=== PATIENT | female | born 1960 | race African-American/Black ===

== ENCOUNTER → 2020-09-20 11:39 | Outpatient (CLI) | payer OTHER, BC, SELFPAY ==
--- NOTE | 2020-09-20 11:45 | DI.RAD.S_ITS ---
PROCEDURE: XR SHOULDER RT MIN 2V INDICATIONS: right shoulder pain TECHNIQUE: 3 views of the shoulder were acquired. COMPARISON: None. FINDINGS: Bones: No fractures or dislocations. No suspicious bony lesions. Visualized ribs appear intact. Soft tissues: No suspicious soft tissue calcifications. IMPRESSION: No definite radiographic abnormality. If pain persists with conservative management, consider cross sectional imaging such as CT or MRI for further assessment. Dictated by: Brian Gomez [facility] Interpreted: Cortez Espinoza MD on 09/20/2020 at 13:40 Transcribed by: SHERRON on 09/20/2020 at 13:40 Approved by: Cortez Espinoza M.D. on 09/20/2020 at 14:10
== END ==
PROVIDERS: PCP Family Medicine; Referring Provider Family Medicine; Visit Provider Family Medicine
DX: M25.511 Pain in right shoulder (principal); E03.9 Hypothyroidism, unspecified; R59.0 Localized enlarged lymph nodes
CPT/HCPCS: 36415; 73030; 80053; 80061; 82043; 82570; 83615; 84439; 84443; 85025

== ENCOUNTER → 2020-09-20 11:55 | Outpatient (CLI) | payer BC, OTHER, SELFPAY ==
[2020-09-20 12:51] LABS: Add Manual Diff / Slide Review NO; Basophils Absolute Auto 0 /uL (0-100); Basophils Percent Auto 0.6 % (0-2); Eosinophils Absolute Auto 200 /uL (0-450); Eosinophils Percent Auto 2.6 % (2-4); Hemoglobin 14.5 g/dL (12.0-16.0); Lymphocytes Absolute Auto 1700 /uL (1100-4500); Lymphocytes Percent Auto 28.3 % (25-40); Mean Corpuscular HGB Conc 32.9 % (30-36); Mean Corpuscular Hemoglobin 34.2 PG (26-34); Mean Corpuscular Volume 103.8 fL (80-100); Monocytes Absolute Auto 500 /uL (0-900); Monocytes Percent Auto 8.5 % (3-14); Neutrophils Absolute Auto 3600 /uL (1500-7000); Platelet Count 262 X10^3/uL (150-400); Red Blood Cell Count 4.24 X10^6/uL (4.0-5.2); White Blood Cell Count 5.9 X10^3/uL (4.5-11.0)
[2020-09-20 13:18] LABS: Alanine Aminotransferase 16 IU/L (<35); Albumin Globulin Ratio 1.2 (1.0-2.8); BUN Creatinine Ratio 8.7 (6-22); Blood Urea Nitrogen 6 mg/dL (7-17); Calcium 9.8 mg/dL (8.4-10.2); Carbon Dioxide 22 mmol/L (22-32); Chloride 103 mmol/L (98-107); Estimated Glomerular Filt Rate > 60.0 mL/min (>60); Globulin 3.9 g/dL (1.7-4.1); Sodium 133 mmol/L (137-145)
[2020-09-20 13:21] LABS: HEMOLYSIS 321 (0-50)
[2020-09-20 13:26] LABS: Cholesterol 183 mg/dL (140-199); HDL Cholesterol 47 mg/dL (40-60); LDL Cholesterol Calculated 105 mg/dL (<100); Triglycerides 155 mg/dL (35-150)
[2020-09-20 13:48] LABS: TSH w/ Reflex to FT4 < 0.02 uIU/mL (0.47-4.68)
[2020-09-20 14:33] LABS: Free T4, Direct Thyroxine 1.91 ng/dL (0.78-2.19)
[2020-09-20 16:33] LABS: Creatinine Urine Random 158.6 mg/dL
[2020-09-20 16:37] LABS: Microalbumi Creatinin Ratio Ur 29.6 ug/mg CR (<30); Microalbumin Urine Random 4.7 mg/dL (0-1.6)
== END ==
PROVIDERS: PCP Family Medicine; Referring Provider Family Medicine; Visit Provider Family Medicine
DX: E03.9 Hypothyroidism, unspecified (principal); R59.0 Localized enlarged lymph nodes
CPT/HCPCS: 36415; 80053; 80061; 82043; 82570; 83615; 84439; 84443; 85025

== ENCOUNTER → 2020-09-27 15:58 | Outpatient (CLI) | payer OTHER, BC, SELFPAY ==
--- NOTE | 2020-09-27 16:00 | DI.US.S_ITS ---
PROCEDURE: US SOFT TISSUE HEAD AND NECK INDICATIONS: CERVICAL CHAIN LYMPH NODE SWELLING TECHNIQUE: Real-time scanning was performed of the neck region of interest, with image documentation. COMPARISON: None. FINDINGS: Multiple right neck enlarged morphologically normal appearing lymph nodes are present with the largest measuring up to 1.7 cm in maximal short axis. IMPRESSION: Lymphadenopathy involving the right neck which although may be reactive, malignant lymphadenopathy cannot be excluded and close clinical correlation and follow-up is recommended. If indicated, contrast-enhanced soft tissue neck CT or FNA could be performed for further assessment. Dictated by: Brian NEUMANN Interpreted: Robert Mcmanus MD on 09/27/2020 at 16:21 Transcribed by: DC on 09/27/2020 at 16:22 Approved by: Robert Mcmanus M.D. on 09/27/2020 at 17:14
== END ==
PROVIDERS: PCP Family Medicine; Referring Provider Family Medicine; Visit Provider Family Medicine
DX: C50.919 Malignant neoplasm of unspecified site of unspecified female breast (principal); R59.0 Localized enlarged lymph nodes
CPT/HCPCS: 76536

== ENCOUNTER → 2020-10-04 18:31 | Outpatient (CLI) | payer OTHER, BC, SELFPAY ==
[2020-10-04 19:55] LABS: COVID19 -Nasal RAPID Negative (Negative)
== END ==
PROVIDERS: PCP Family Medicine; Visit Provider Nurse Practitioner
DX: Z20.822 Contact with and (suspected) exposure to COVID-19 (principal); J02.9 Acute pharyngitis, unspecified
CPT/HCPCS: 87635

== ENCOUNTER 2020-10-23 11:30 | Emergency (ER) | payer OTHER, BC, SELFPAY ==
[2020-10-23] VITALS (13 sets, daily range): BP systolic 110–157; BP diastolic 62–96; PULSE 97–124; RESP 18–29; TEMP 36.7; O2SAT 92–100; BMI 25.8
--- NOTE | 2020-10-23 12:05 | DI.RAD.S_ITS ---
PROCEDURE: XR CHEST 1V INDICATIONS: weakness, tiredness TECHNIQUE: One view of the chest was acquired. COMPARISON: None. FINDINGS: Surgical changes and devices: None. Lungs and pleura: Lungs are clear. No pleural effusions or pneumothorax. Mediastinum: Mediastinal contours appear normal. Heart size is normal. Bones and chest wall: No suspicious bony lesions. Overlying soft tissues appear unremarkable. IMPRESSION: No acute pulmonary process. Dictated by: Ginger Ellison M.D. on 10/23/2020 at 13:20 Approved by: Ginger Ellison M.D. on 10/23/2020 at 13:20
--- NOTE | 2020-10-23 12:27 | DI.CT.S_ITS ---
PROCEDURE: CT HEAD/BRAIN WO CON INDICATIONS: Fall TECHNIQUE: Noncontrast 4.5 mm thick angled axial sections acquired from the foramen magnum to the vertex, with coronal and sagittal reformats. For radiation dose reduction, the following was used: automated exposure control, adjustment of mA and/or kV according to patient size. COMPARISON: [facility], CR, XR CHEST 1V, 10/23/2020, 12:13. FINDINGS: Image quality: There is artifact associated with the metallic hardware. CSF spaces: Basal cisterns are patent. No extra-axial fluid collections. Ventricles are normal in size and shape. Brain: Coils can be seen within the [id number] posteriorly, to the right of the midline, with associated streak artifact. There is abnormal vasogenic edema seen involving both cerebral hemispheres, right worse than left. Potential hyperdense masses can be seen. Mass effect can be seen on the right anteriorly, with midline shift of 8 mm. No definite herniation can be seen at this time. No midline shift. No intracranial masses or hemorrhage. Mann-white matter interface is normal. Skull and face: Calvarium and visualized facial bones are intact, without suspicious lesions. Sinuses: Visualized sinuses and mastoids are clear. IMPRESSION: No acute intracranial hemorrhage is seen. These imaging findings are highly worrisome for metastatic disease, with bilateral apparent hyperdense masses with surrounding vasogenic edema. Mass effect is seen, with midline shift of 8 mm. 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 If it would be helpful for clinical management decision making, please consider a dedicated brain MRI (without and with contrast) for further evaluation (assuming that there is no contraindication). Note: Dr. Pollack was not available to discuss this case at the time of this dictation. Findings and recommendations relayed to Dr. Pollack via staff, [place], at 12:06 p.m. [place] time on October 23, 2020. Dr. Pollack will call back if there are any questions. Dictated by: Varghese Rosenthal M.D. on 10/23/2020 at 12:01 Approved by: Varghese Rosenthal M.D. on 10/23/2020 at 12:08
--- NOTE | 2020-10-23 12:27 | ED_ITS ---
HPI - Neuro Symptoms/Deficit <Gloria Pollack DO - Last Filed: 10/25/20 07:22> General Chief Complaint: Neuro Symptoms/Deficit Stated Complaint: headache, left sided weakness Time Seen by Provider: 10/23/20 12:02 Source: patient and EMS Mode of arrival: EMS Limitations: no limitations History of Present Illness On Anticoagulants: No Related Data Home Medications Medication Instructions Recorded Confirmed cholecalciferol (vitamin D3) 125 125 mcg PO DAILY 09/20/20 10/04/20 mcg (5,000 unit) capsule garlic 1,000 mg capsule 1,000 mg PO QPC 09/20/20 10/04/20 mecobalamin (vitamin B12) 1,000 1,000 mcg PO DAILY 09/20/20 10/04/20 mcg chewable tablet omega-3 fatty acids 1,000 mg 1,000 mg PO DAILY 09/20/20 10/04/20 capsule turmeric root extract 500 mg 1,500 mg PO DAILY cap 09/20/20 10/04/20 capsule Previous Rx's Medication Instructions Recorded anastrozole 1 mg tablet 1 mg PO DAILY #90 tab 09/20/20 levetiracetam 1,000 mg tablet for 1,000 mg PO BID #180 tab 09/20/20 oral suspension lisinopril 40 mg tablet 40 mg PO DAILY #90 tab 09/20/20 levothyroxine 100 mcg tablet 100 mcg PO DAILY #90 tab 09/27/20 dexamethasone 6 mg tablet 6 mg PO QID #20 tab 10/23/20 Allergies Allergy/AdvReac Type Severity Reaction Status Date / Time No Known Drug Allergies Allergy Verified 10/04/20 18:32 <Gene Bell PA-C - Last Filed: 10/24/20 14:21> History of Present Illness HPI Narrative: 60-year-old female with past medical history breast cancer, epilepsy, hypothyroidism, aneurysm of posterior inferior cerebellar artery, hyperlipidemia, hypertension presents to the ED with fatigue, left-sided weakness for 1 week. Patient also endorses chronic right shoulder pain. Patient endorses some painful, right-sided cervical lymphadenopathy. Patient states that she has been taking aspirin for the shoulder pain, Benadryl and melatonin for insomnia. Patient has also been mistakenly doubling her doses of Benadryl. Patient endorses heavy drinking starting the Day weekend, endorses drinking wine. Patient recently moved from [place] in May 2020, says she has been experiencing some depression and anxiety, which prompted her to drink alcohol. Patient was seen earlier at the [facility], diagnosed with dehydration. Patient denies fever, chills, chest pain, shortness of breath, nausea, vomiting, abdominal pain, dysuria. Patient endorses suffering a mechanical fall 1 week ago, denies head strike or other injuries. Denies loss of consciousness. Patient endorses a history of seizures for which she takes Keppra daily. Patient was diagnosed with breast cancer in 2016, underwent double mastectomy in 2018, is on anastrozole daily. Patient's thyroid medication levothyroxine was recently reduced, per the patient. Review of Systems <Gloria Pollack DO - Last Filed: 10/25/20 07:22> Review of Systems ROS Unobtainable: All systems reviewed & are unremarkable except as noted in HPI and below Hematologic/Lymphatic On Anticoagulants: No <Gene Bell PA-C - Last Filed: 10/24/20 14:21> Constitutional Constitutional: Denies chills, Reports difficulty sleeping, Reports fatigue, Denies fever(s), Denies frequent falls, Reports lethargy and Reports weakness Eyes Eyes: Denies change in vision, Denies eye discharge, Denies irritation and Denies loss of vision ENT Ears, Nose, Mouth, and Throat: Denies change in voice, Denies dizziness, Denies neck pain, Denies sore throat and Denies throat swelling Comments: Right cervical painful lymphadenopathy Cardiovascular Cardiovascular: Denies chest pain, Denies irregular heart rhythm, Denies lightheadedness, Denies palpitations, Denies dyspnea, Denies dyspnea on exertion and Denies orthopnea Respiratory Respiratory: Denies cough, Denies dyspnea, Denies dyspnea on exertion and Denies wheezing Gastrointestinal Gastrointestinal: Denies abdominal pain, Denies change in bowel habits, Denies diarrhea, Denies nausea and Denies vomiting Musculoskeletal Musculoskeletal: Reports muscle weakness, Denies neck pain and Denies numbness Integumentary/Breasts Skin/Breast: Denies pruritus, Denies erythema, Denies rash and Denies wounds Neurologic Neurologic: Denies behavioral changes, Denies confusion, Denies dizziness, De nies frequent falls, Reports localized weakness, Denies loss of vision, Denies numbness and Reports weakness Comments: left-sided upper and lower extremity weakness Psychiatric Psychiatric: Denies anxiety, Denies behavioral changes, Denies confusion, Denies depression, Denies homicidal ideation and Denies suicidal ideation Endocrine Endocrine: Reports fatigue, Denies flushing and Denies palpitations Hematologic/Lymphatic Hematologic/Lymphatic: Denies easy bruising Allergic/Immunologic Allergic/Immunologic: Denies urticaria, Denies throat swelling and Denies wheezing Patient History <Gloria Ada Pollack DO - Last Filed: 10/25/20 07:22> Medical History Aneurysm of posterior inferior cerebellar artery Breast cancer, stage 2 Hypertension Hypothyroidism Measles Seizures Family History Father Cancer Social History Smoking Status: Former smoker Smoking Status: Former smoker alcohol intake frequency: holidays/special occasions only Substance Use Type: does not use Exam <Gloria Ada Pollack DO - Last Filed: 10/25/20 07:22> Initial Vital Signs Initial Vital Signs: Vital Signs Pulse Rate 124 H 10/23/20 11:36 Blood Pressure 152/96 H 10/23/20 11:36 Pulse Oximetry 94 10/23/20 11:36 <Gene Bell PA-C - Last Filed: 10/24/20 14:21> Initial Vital Signs Initial Vital Signs: Vital Signs Pulse Rate 124 H 10/23/20 11:36 Blood Pressure 152/96 H 10/23/20 11:36 Pulse Oximetry 94 10/23/20 11:36 Const General: cooperative HENMT Head: normocephalic and atraumatic Ears: external ears normal and TM's normal bilaterally Nose: external nose normal and No nasal discharge Face and sinus: sinuses nontender, face symmetric, no sinus tenderness and No dry mucous membranes Mouth: oral mucosae normal and moist mucous membranes Teeth and gingiva: dentition normal Throat: tonsils normal and uvula midline Eyes General: appearance normal, both eyes and all related structures Eyelids: eyelids normal Conjunctivae: conjunctivae normal Sclera: sclerae normal Pupils: PERRL EOM: EOM intact bilaterally Neck Neck: normal visual inspection, trachea midline, No lymphadenopathy, No midline deformity and No JVD Lymphatic: No lymphedema and lymphadenopathy Other: Painful Cervical lymphadenopathy, right greater than left Chest Chest: normal inspection of the chest Resp Effort & Inspection: normal respiratory effort, able to speak in complete sentences, no respiratory distress and no use of accessory muscles Auscultation: clear to auscultation bilaterally, no rales, no rhonchi and no wheezes Cardio Rate: regular rate Rhythm: regular rhythm Heart Sounds: no click, no gallops, no murmurs and no rubs Pulses: normal peripheral pulses GI Inspection: non-distended Palpation: soft, no hepatosplenomegaly, No guarding, No pulsatile mass and No tender Auscultation: normal bowel sounds Back/Spine/Pelvis Back: No CVA tenderness Cervical Spine: cervical ROM normal and No pain with cervical ROM Thoracic/Lumbar Spine: thoracic and lumbar spine normal to inspection Skin General: no rashes or lesions noted, No jaundice and No petechiae Neuro General: patient alert, patient oriented x3, gait normal and no focal motor deficits Speech: speech normal Other: Neurologically intact. CN 1 through 12 intact, PERRLA, gait normal, strength and sensation intact. Negative pronator drift, negative rapid alternating movements, negative [id number]. Patient alert and oriented A& x4, following commands well. Extrem General: full ROM, no clubbing, cyanosis or edema, no pedal edema and no calf tenderness Psych Appearance: well kempt Mental Status: mental status grossly normal Attitude: cooperative Thought Content: normal and suicidality Judgment: judgment good Course <Gloria Pollack, - Last Filed: 10/25/20 07:22> Orders Ordered: Discontinued Medications Dexamethasone (Dexamethasone 10 Mg/Ml Vial) 10 mg IV NOW ONE Stop: 10/23/20 13:18 Last Admin: 10/23/20 13:31 Dose: 10 mg Documented by: LISSY Sodium Chloride (Normal Saline 0.9%) 1,000 mls @ 1,000 mls/hr IV BOLUS ONE Stop: 10/23/20 13:04 Last Infusion: 10/23/20 16:02 Dose: 0 mls/hr Documented by: Admin: 10/23/20 13:30 Dose: 1,000 mls/hr Documented by: LISSY Sodium Chloride (Normal Saline 0.9%) 1,000 mls @ 500 mls/hr IV BOLUS ONE Stop: 10/23/20 16:37 Last Admin: 10/23/20 15:07 Dose: Not Given Documented by: CTRKIKO Reevaluation(s) Reevaluation #1: Patient was seen evaluated by myself independently. Patient is ambulating without issue around the room when I arrive in the room. Her imaging was reviewed by myself and the case was discussed as well. Patient's findings are quite concerning she was given initial dose of dexamethasone 10 mg IV case was discussed with Neurosurgery, Radiation Oncology as well as medical oncology. At this time they are not advocating for admission or observation. I discussed with patient that if she is uncomfortable we can evaluate otherwise. She feels comfortable returning home and we discussed she should have a very low threshold to return and she has significant swelling and changes in her brain although these have likely been there for quite some time as she is tolerating them quite well. Patient is agreeable to this. She was asked to return in 12-24 hours for recheck. And she is set up for urgent outpatient follow-up. Patient discharged with dexamethasone 6mg po QID #20 tablets which patient is to continue and was sent to [facility]. This was clarified verbally with the patient as it was noted it was not in her discharge instructions by phone. Patient verbally expresses her understanding and will pick that up she start. Vital Signs Vital signs: Vital Signs - 8 hr 10/23/20 13:00 10/23/20 13:14 10/23/20 13:30 Pulse Rate 116 H 114 H 113 H Respiratory Rate 21 23 22 Blood Pressure 126/85 Pulse Oximetry 92 10/23/20 13:31 10/23/20 14:00 10/23/20 14:30 Pulse Rate 114 H 111 H 114 H Respiratory Rate 21 19 29 H Blood Pressure 110/88 157/93 H Pulse Oximetry 10/23/20 15:00 10/23/20 15:30 10/23/20 16:29 Pulse Rate 108 H 109 H 97 H Respiratory Rate 19 20 20 Blood Pressure 150/62 H Pulse Oximetry 98 100 99 <Gene Bell PA-C - Last Filed: 10/24/20 14:21> Orders Ordered: Discontinued Medications Dexamethasone (Dexamethasone 10 Mg/Ml Vial) 10 mg IV NOW ONE Stop: 10/23/20 13:18 Last Admin: 10/23/20 13:31 Dose: 10 mg Documented by: LISSY Sodium Chloride (Normal Saline 0.9%) 1,000 mls @ 1,000 mls/hr IV BOLUS ONE Stop: 10/23/20 13:04 Last Infusion: 10/23/20 16:02 Dose: 0 mls/hr Documented by: Admin: 10/23/20 13:30 Dose: 1,000 mls/hr Documented by: LISSY Sodium Chloride (Normal Saline 0.9%) 1,000 mls @ 500 mls/hr IV BOLUS ONE Stop: 10/23/20 16:37 Last Admin: 10/23/20 15:07 Dose: Not Given Documented by: MAYRA Vital Signs Vital signs: Vital Signs - 8 hr 10/23/20 13:00 10/23/20 13:14 10/23/20 13:30 Pulse Rate 116 H 114 H 113 H Respiratory Rate 21 23 22 Blood Pressure 126/85 Pulse Oximetry 92 10/23/20 13:31 10/23/20 14:00 10/23/20 14:30 Pulse Rate 114 H 111 H 114 H Respiratory Rate 21 19 29 H Blood Pressure 110/88 157/93 H Pulse Oximetry 10/23/20 15:00 10/23/20 15:30 10/23/20 16:29 Pulse Rate 108 H 109 H 97 H Respiratory Rate 19 20 20 Blood Pressure 150/62 H Pulse Oximetry 98 100 99 MDM - Neuro Symptoms/Deficit <Gloria Pollack, - Last Filed: 10/25/20 07:22> Lab Data Result diagrams: 10/23/20 13:16 10/23/20 13:45 Labs: Lab Results 10/23/20 10/23/20 10/23/20 Range/Units 13:16 13:16 13:45 WBC 4.9 (4.5-11.0) X10^3/uL RBC 3.74 L (4.0-5.2) X10^6/uL Hgb 12.8 (12.0-16.0) g/dL Hct 38.5 (36-46) % MCV 103.1 H (80-100) fL MCH 34.1 H (26-34) PG MCHC 33.1 (30-36) % RDW 14.5 (11.6-14.8) % Plt Count 354 (150-400) X10^3/uL Neut % (Auto) 66.7 (50-75) % Lymph % (Auto) 22.5 L (25-40) % [place] % (Auto) 8.4 (3-14) % Eos % (Auto) 1.8 L (2-4) % Baso % (Auto) 0.6 (0-2) % Neut # (Auto) 3300 (2828-3729) /uL Lymph # (Auto) 1100 (7907-6992) /uL [place] # (Auto) 400 (0-900) /uL Eos # (Auto) 100 (0-450) /uL Baso # (Auto) 0 (0-100) /uL PT 12.2 (10.1-12.7) SECONDS INR 1.1 (0.9-1.3) APTT 39 H (26.4-36.2) SECONDS D-Dimer < 200 (<230) ng/mL Sodium (137-145) mmol/L Potassium (3.4-5.1) mmol/L Chloride (98-107) mmol/L Carbon Dioxide (22-32) mmol/L BUN (7-17) mg/dL Creatinine (0.52-1.04) mg/dL Estimated GFR (>60) mL/min BUN/Creatinine Ratio (6-22) Glucose (70-100) mg/dL Calcium (8.4-10.2) mg/dL Total Bilirubin (0.2-1.3) mg/dL AST (14-36) IU/L ALT (<35) IU/L Alkaline Phosphatase (38-126) U/L Total Creatine Kinase (30-135) U/L CK-MB (CK-2) CK-MB (CK-2) Rel Index Troponin I (0.01-0.034) ng/mL NT-Pro-B Natriuret Pep (<125) pg/mL Total Protein (6.3-8.2) g/dL Albumin (3.5-5.0) g/dL Globulin (1.7-4.1) g/dL Albumin/Globulin Ratio (1.0-2.8) Lipase (23-300) U/L TSH (0.47-4.68) uIU/mL Free T4 (0.78-2.19) ng/dL Salicylates (<20) mg/dL U Opiates 300ng/mL cut (Negative) Ur Oxycodone Screen (Negative) Urine Methadone Screen (Negative) Acetaminophen Cancelled Ur Barbiturates Screen (Negative) U Tricyclic Antidepress (Negative) Ur Phencyclidine Scrn (Negative) Ur Amphetamines Screen (Negative) U Methamphetamines Scrn (Negative) Ur MDMA Scrn (Ecstasy) (Negative) U Benzodiazepines Scrn (Negative) Urine Cocaine Screen (Negative) U Marijuana (THC) Screen (Negative) Ethyl Alcohol ( - 10) mg/dL 10/23/20 10/23/20 10/23/20 Range/Units 13:45 13:45 13:45 WBC (4.5-11.0) X10^3/uL RBC (4.0-5.2) X10^6/uL Hgb (12.0-16.0) g/dL Hct (36-46) % MCV (80-100) fL MCH (26-34) PG MCHC (30-36) % RDW (11.6-14.8) % Plt Count (150-400) X10^3/uL Neut % (Auto) (50-75) % Lymph % (Auto) (25-40) % [place] % (Auto) (3-14) % Eos % (Auto) (2-4) % Baso % (Auto) (0-2) % Neut # (Auto) (5702-2428) /uL Lymph # (Auto) (1691-2388) /uL [place] # (Auto) (0-900) /uL Eos # (Auto) (0-450) /uL Baso # (Auto) (0-100) /uL PT (10.1-12.7) SECONDS INR (0.9-1.3) APTT (26.4-36.2) SECONDS D-Dimer (<230) ng/mL Sodium 139 (137-145) mmol/L Potassium 3.6 (3.4-5.1) mmol/L Chloride 107 (98-107) mmol/L Carbon Dioxide 22 (22-32) mmol/L BUN 6 L (7-17) mg/dL Creatinine 0.65 (0.52-1.04) mg/dL Estimated GFR > 60.0 (>60) mL/min BUN/Creatinine Ratio 9.2 (6-22) Glucose 99 (70-100) mg/dL Calcium 9.7 (8.4-10.2) mg/dL Total Bilirubin 0.3 (0.2-1.3) mg/dL AST 28 (14-36) IU/L ALT 9 (<35) IU/L Alkaline Phosphatase 77 (38-126) U/L Total Creatine Kinase 33 (30-135) U/L CK-MB (CK-2) TNP CK-MB (CK-2) Rel Index TNP Troponin I < 0.012 (0.01-0.034) ng/mL NT-Pro-B Natriuret Pep 212 H (<125) pg/mL Total Protein 7.8 (6.3-8.2) g/dL Albumin 4.0 (3.5-5.0) g/dL Globulin 3.8 (1.7-4.1) g/dL Albumin/Globulin Ratio 1.1 (1.0-2.8) Lipase 128 (23-300) U/L TSH (0.47-4.68) uIU/mL Free T4 (0.78-2.19) ng/dL Salicylates 19.4 (<20) mg/dL U Opiates 300ng/mL cut (Negative) Ur Oxycodone Screen (Negative) Urine Methadone Screen (Negative) Acetaminophen < 10 L Ur Barbiturates Screen (Negative) U Tricyclic Antidepress (Negative) Ur Phencyclidine Scrn (Negative) Ur Amphetamines Screen (Negative) U Methamphetamines Scrn (Negative) Ur MDMA Scrn (Ecstasy) (Negative) U Benzodiazepines Scrn (Negative) Urine Cocaine Screen (Negative) U Marijuana (THC) Screen (Negative) Ethyl Alcohol < 10 ( - 10) mg/dL 10/23/20 10/23/20 Range/Units 13:45 16:06 WBC (4.5-11.0) X10^3/uL RBC (4.0-5.2) X10^6/uL Hgb (12.0-16.0) g/dL Hct (36-46) % MCV (80-100) fL MCH (26-34) PG MCHC (30-36) % RDW (11.6-14.8) % Plt Count (150-400) X10^3/uL Neut % (Auto) (50-75) % Lymph % (Auto) (25-40) % [place] % (Auto) (3-14) % Eos % (Auto) (2-4) % Baso % (Auto) (0-2) % Neut # (Auto) (2121-9068) /uL Lymph # (Auto) (0812-8540) /uL [place] # (Auto) (0-900) /uL Eos # (Auto) (0-450) /uL Baso # (Auto) (0-100) /uL PT (10.1-12.7) SECONDS INR (0.9-1.3) APTT (26.4-36.2) SECONDS D-Dimer (<230) ng/mL Sodium (137-145) mmol/L Potassium (3.4-5.1) mmol/L Chloride (98-107) mmol/L Carbon Dioxide (22-32) mmol/L BUN (7-17) mg/dL Creatinine (0.52-1.04) mg/dL Estimated GFR (>60) mL/min BUN/Creatinine Ratio (6-22) Glucose (70-100) mg/dL Calcium (8.4-10.2) mg/dL Total Bilirubin (0.2-1.3) mg/dL AST (14-36) IU/L ALT (<35) IU/L Alkaline Phosphatase (38-126) U/L Total Creatine Kinase (30-135) U/L CK-MB (CK-2) CK-MB (CK-2) Rel Index Troponin I (0.01-0.034) ng/mL NT-Pro-B Natriuret Pep (<125) pg/mL Total Protein (6.3-8.2) g/dL Albumin (3.5-5.0) g/dL Globulin (1.7-4.1) g/dL Albumin/Globulin Ratio (1.0-2.8) Lipase (23-300) U/L TSH 0.07 L (0.47-4.68) uIU/mL Free T4 2.22 H (0.78-2.19) ng/dL Salicylates (<20) mg/dL U Opiates 300ng/mL cut Negative (Negative) Ur Oxycodone Screen Negative (Negative) Urine Methadone Screen Negative (Negative) Acetaminophen Ur Barbiturates Screen Negative (Negative) U Tricyclic Antidepress Negative (Negative) Ur Phencyclidine Scrn Negative (Negative) Ur Amphetamines Screen Negative (Negative) U Methamphetamines Scrn Negative (Negative) Ur MDMA Scrn (Ecstasy) Negative (Negative) U Benzodiazepines Scrn Negative (Negative) Urine Cocaine Screen Negative (Negative) U Marijuana (THC) Screen Negative (Negative) Ethyl Alcohol ( - 10) mg/dL Imaging Data CT scan - abdomen/pelvis: Radiologist's Impression: [address] [address] [address] Scan Report Signed Patient: Brando Elliott MR#: [id number] : 1960 Acct:[id number] Age/Sex: 60 / F Date of Service: 10/23/20 Loc: ED Accession Number: [id number] ?? Procedure: CT chest abd pel w con Ordering Provider: Gene Bell P.A-C PROCEDURE:? CT CHEST ABD PEL W CON ? INDICATIONS:? CTH with mets, hx of breast cancer ? TECHNIQUE:? After the administration of oral and intravenous contrast, axial sections acquired from the supraclavicular neck to the pubic symphysis.? Coronal and sagittal reformats were performed.? For radiation dose reduction, the following was used:? automated exposure control, adjustment of mA and/or kV according to patient size.? ? COMPARISON:None. ? FINDINGS:? Image quality:? Excellent.? ? CHEST: Lower Neck: No enlarged lymph nodes in the right neck and supraclavicular area.? The largest right inferior cervical lymph node measures 2.1 cm.? There are multiple right supraclavicular lymph node measuring up to 1.4 cm. Thyroid: Within normal limits. Axillae: No enlarged lymph nodes. Chest Wall:? Bilateral mastectomies with breast implants.? ? Lungs and Airways:? Moderate emphysema.? Mild subpleural septal thickening and pulmonary fibrosis in the anterior left upper lobe and lingula may be secondary to post radiation change.? consolidation or suspicious nodules. Pleura: No pneumothorax or pleural effusions.? ? Heart: Heart size is normal.? Mild pericardial thickening or trace pericardial effusion. Thoracic Vessels: The aorta and pulmonary arteries demonstrate normal size.? ? Mediastinum and Jovanna:? Marked mediastinal lymphadenopathy.? ? There is a large prevascular mass measuring 3.7 x 4.6 cm anterior and right to the aortic arch and the brachiocephalic vessels.? ? There is compression of the left brachiocephalic vein as well as superior vena cava.? ? There is a large right paratracheal lymph node measuring 3.9 x 5.9 cm.? ? There is a 2.1 x 3.0 cm AP window lymph node.? ? A 2.8 x 2.9 cm subcarinal lymph node is identified.? ? Mild right hilar lymphadenopathy with a 2 cm right hilar lymph node. ? Esophagus: No wall thickening.? Small hiatal hernia. ? ? ABDOMEN: Liver:? Liver is normal in size.? There is heterogeneous enhancement in liver with decreased enhancement in the right hepatic lobe compared to the left hepatic lobe, probably secondary to transient hepatic enhancement difference.? The right portal vein, however, appears narrowed and demonstrates poor enhancement but the scan was performed in arterial phase.? Hypodensity in the falciform ligament in the left hepatic lobe is most likely secondary to focal fat. Gallbladder:? Unremarkable.? ? Biliary ducts:? Unremarkable.? ? Pancreas:? Unremarkable.? ? Spleen:? Unremarkable.? ? Adrenal Glands:? Unremarkable.? ? Kidneys and Ureters:? Unremarkable.? ? ? Stomach and Bowel:? Stomach, small bowel loops, and colon are normal in caliber.? Diverticulosis without diverticulitis.? Peritoneum:? No abnormal intraperitoneal fluid.? No free air.? ? Ventral Wall: ? No hernia.? ? Abdominal Nodes:? Extensive retroperitoneal or mesenteric adenopathy.? There is also right external iliac lymphadenopathy.? [employer] lymph nodes are listed in the following: ? 1) 2.5 x 2.1 cm left para-aortic lymph node just below the left renal hilum (series 2, image 78) 2) 3.1 x 5.3 cm aortocaval lymph node (series 2, image 75) comparison is inferior vena cava. 3) 3.1 x 5.8 cm mesenteric lymph node below the uncinate process of pancreas 4) 1.2 x 1.8 cm right iliac lymph node (series 2, image 122). ? Vessels:? Aorta is normal in size with severe atherosclerotic calcification.? There is compression of IVC and the left renal vein.? The left renal vein is narrowed.? Because of the timing of contrast enhancement, IVC is not opacified.? Cannot rule out tumor or bland thrombosis of inferior vena cava or left renal vein. ? PELVIS: Pelvic Organs:? Uterus is absent, consistent with hysterectomy..? ? Bladder:? Unremarkable.? ? Pelvic Nodes: No enlarged lymph nodes.? Miscellaneous: No inguinal hernias are seen. ? ? ? Bones:? Unremarkable.? ? ? IMPRESSION:? ? 1.? There is right cervical, supraclavicular, mediastinal, right hilar, retroperitoneal, mesenteric and right external iliac lymphadenopathy consistent with metastatic disease versus lymphomas.? To further evaluate cervical lymphadenopathy, CT of the neck with contrast is recommended. ? 2.? Bilateral mastectomies and breast implants.? No axillary lymphadenopathy. ? 3. Decreased enhancement in the right hepatic lobe compared to the left hepatic lobe is most likely secondary to transition hepatic enhancement difference.? The CT was performed during arterial phase.? If there is clinical concern for portal venous thrombosis or hepatic venous thrombosis, Doppler ultrasound may be performed. ? 4. There is compression of the inferior vena cava and left hepatic vein by retroperitoneal jayleen mass.? IVC is not? well opacified because of the timing of contrast enhancement, therefore, not well evaluated. ? ? ? Dictated by: Vishnu Perla M.D. on 10/23/2020 at 15:37 ? ? Approved by: Vishnu Perla M.D. on 10/23/2020 at 16:10?? [facility] Narrative Medical decision making narrative: 60-year-old female with past medical history breast cancer, epilepsy, hypothyroidism, aneurysm of posterior inferior cerebellar artery, hyperlipidemia, hypertension presents to the ED with fatigue, left-sided weakness for 1 week. Concern for dehydration versus intracranial bleed versus electrolyte derangements versus anticholinergic symptoms versus alcohol withdrawal versus drug toxicity. Will order labs, troponin, EKG, chest x-ray, urine drug screen, salicylate levels, acetaminophen level, Keppra level. Will order CT head. Will reassess. <Gene Bell PA-C - Last Filed: 10/24/20 14:21> Lab Data Labs: Lab Results 10/23/20 10/23/20 10/23/20 Range/Units 13:16 13:16 13:45 WBC 4.9 (4.5-11.0) X10^3/uL RBC 3.74 L (4.0-5.2) X10^6/uL Hgb 12.8 (12.0-16.0) g/dL Hct 38.5 (36-46) % MCV 103.1 H (80-100) fL MCH 34.1 H (26-34) PG MCHC 33.1 (30-36) % RDW 14.5 (11.6-14.8) % Plt Count 354 (150-400) X10^3/uL Neut % (Auto) 66.7 (50-75) % Lymph % (Auto) 22.5 L (25-40) % [place] % (Auto) 8.4 (3-14) % Eos % (Auto) 1.8 L (2-4) % Baso % (Auto) 0.6 (0-2) % Neut # (Auto) 3300 (6306-0275) /uL Lymph # (Auto) 1100 (7730-0090) /uL [place] # (Auto) 400 (0-900) /uL Eos # (Auto) 100 (0-450) /uL Baso # (Auto) 0 (0-100) /uL PT 12.2 (10.1-12.7) SECONDS INR 1.1 (0.9-1.3) APTT 39 H (26.4-36.2) SECONDS D-Dimer < 200 (<230) ng/mL Sodium (137-145) mmol/L Potassium (3.4-5.1) mmol/L Chloride (98-107) mmol/L Carbon Dioxide (22-32) mmol/L BUN (7-17) mg/dL Creatinine (0.52-1.04) mg/dL Estimated GFR (>60) mL/min BUN/Creatinine Ratio (6-22) Glucose (70-100) mg/dL Calcium (8.4-10.2) mg/dL Total Bilirubin (0.2-1.3) mg/dL AST (14-36) IU/L ALT (<35) IU/L Alkaline Phosphatase (38-126) U/L Total Creatine Kinase (30-135) U/L CK-MB (CK-2) CK-MB (CK-2) Rel Index Troponin I (0.01-0.034) ng/mL NT-Pro-B Natriuret Pep (<125) pg/mL Total Protein (6.3-8.2) g/dL Albumin (3.5-5.0) g/dL Globulin (1.7-4.1) g/dL Albumin/Globulin Ratio (1.0-2.8) Lipase (23-300) U/L TSH (0.47-4.68) uIU/mL Free T4 (0.78-2.19) ng/dL Salicylates (<20) mg/dL U Opiates 300ng/mL cut (Negative) Ur Oxycodone Screen (Negative) Urine Methadone Screen (Negative) Acetaminophen Cancelled Ur Barbiturates Screen (Negative) U Tricyclic Antidepress (Negative) Ur Phencyclidine Scrn (Negative) Ur Amphetamines Screen (Negative) U Methamphetamines Scrn (Negative) Ur MDMA Scrn (Ecstasy) (Negative) U Benzodiazepines Scrn (Negative) Urine Cocaine Screen (Negative) U Marijuana (THC) Screen (Negative) Ethyl Alcohol ( - 10) mg/dL 10/23/20 10/23/20 10/23/20 Range/Units 13:45 13:45 13:45 WBC (4.5-11.0) X10^3/uL RBC (4.0-5.2) X10^6/uL Hgb (12.0-16.0) g/dL Hct (36-46) % MCV (80-100) fL MCH (26-34) PG MCHC (30-36) % RDW (11.6-14.8) % Plt Count (150-400) X10^3/uL Neut % (Auto) (50-75) % Lymph % (Auto) (25-40) % [place] % (Auto) (3-14) % Eos % (Auto) (2-4) % Baso % (Auto) (0-2) % Neut # (Auto) (0370-4007) /uL Lymph # (Auto) (5374-0934) /uL [place] # (Auto) (0-900) /uL Eos # (Auto) (0-450) /uL Baso # (Auto) (0-100) /uL PT (10.1-12.7) SECONDS INR (0.9-1.3) APTT (26.4-36.2) SECONDS D-Dimer (<230) ng/mL Sodium 139 (137-145) mmol/L Potassium 3.6 (3.4-5.1) mmol/L Chloride 107 (98-107) mmol/L Carbon Dioxide 22 (22-32) mmol/L BUN 6 L (7-17) mg/dL Creatinine 0.65 (0.52-1.04) mg/dL Estimated GFR > 60.0 (>60) mL/min BUN/Creatinine Ratio 9.2 (6-22) Glucose 99 (70-100) mg/dL Calcium 9.7 (8.4-10.2) mg/dL Total Bilirubin 0.3 (0.2-1.3) mg/dL AST 28 (14-36) IU/L ALT 9 (<35) IU/L Alkaline Phosphatase 77 (38-126) U/L Total Creatine Kinase 33 (30-135) U/L CK-MB (CK-2) TNP CK-MB (CK-2) Rel Index TNP Troponin I < 0.012 (0.01-0.034) ng/mL NT-Pro-B Natriuret Pep 212 H (<125) pg/mL Total Protein 7.8 (6.3-8.2) g/dL Albumin 4.0 (3.5-5.0) g/dL Globulin 3.8 (1.7-4.1) g/dL Albumin/Globulin Ratio 1.1 (1.0-2.8) Lipase 128 (23-300) U/L TSH (0.47-4.68) uIU/mL Free T4 (0.78-2.19) ng/dL Salicylates 19.4 (<20) mg/dL U Opiates 300ng/mL cut (Negative) Ur Oxycodone Screen (Negative) Urine Methadone Screen (Negative) Acetaminophen < 10 L Ur Barbiturates Screen (Negative) U Tricyclic Antidepress (Negative) Ur Phencyclidine Scrn (Negative) Ur Amphetamines Screen (Negative) U Methamphetamines Scrn (Negative) Ur MDMA Scrn (Ecstasy) (Negative) U Benzodiazepines Scrn (Negative) Urine Cocaine Screen (Negative) U Marijuana (THC) Screen (Negative) Ethyl Alcohol < 10 ( - 10) mg/dL 10/23/20 10/23/20 Range/Units 13:45 16:06 WBC (4.5-11.0) X10^3/uL RBC (4.0-5.2) X10^6/uL Hgb (12.0-16.0) g/dL Hct (36-46) % MCV (80-100) fL MCH (26-34) PG MCHC (30-36) % RDW (11.6-14.8) % Plt Count (150-400) X10^3/uL Neut % (Auto) (50-75) % Lymph % (Auto) (25-40) % [place] % (Auto) (3-14) % Eos % (Auto) (2-4) % Baso % (Auto) (0-2) % Neut # (Auto) (4785-3561) /uL Lymph # (Auto) (7749-9088) /uL [place] # (Auto) (0-900) /uL Eos # (Auto) (0-450) /uL Baso # (Auto) (0-100) /uL PT (10.1-12.7) SECONDS INR (0.9-1.3) APTT (26.4-36.2) SECONDS D-Dimer (<230) ng/mL Sodium (137-145) mmol/L Potassium (3.4-5.1) mmol/L Chloride (98-107) mmol/L Carbon Dioxide (22-32) mmol/L BUN (7-17) mg/dL Creatinine (0.52-1.04) mg/dL Estimated GFR (>60) mL/min BUN/Creatinine Ratio (6-22) Glucose (70-100) mg/dL Calcium (8.4-10.2) mg/dL Total Bilirubin (0.2-1.3) mg/dL AST (14-36) IU/L ALT (<35) IU/L Alkaline Phosphatase (38-126) U/L Total Creatine Kinase (30-135) U/L CK-MB (CK-2) CK-MB (CK-2) Rel Index Troponin I (0.01-0.034) ng/mL NT-Pro-B Natriuret Pep (<125) pg/mL Total Protein (6.3-8.2) g/dL Albumin (3.5-5.0) g/dL Globulin (1.7-4.1) g/dL Albumin/Globulin Ratio (1.0-2.8) Lipase (23-300) U/L TSH 0.07 L (0.47-4.68) uIU/mL Free T4 2.22 H (0.78-2.19) ng/dL Salicylates (<20) mg/dL U Opiates 300ng/mL cut Negative (Negative) Ur Oxycodone Screen Negative (Negative) Urine Methadone Screen Negative (Negative) Acetaminophen Ur Barbiturates Screen Negative (Negative) U Tricyclic Antidepress Negative (Negative) Ur Phencyclidine Scrn Negative (Negative) Ur Amphetamines Screen Negative (Negative) U Methamphetamines Scrn Negative (Negative) Ur MDMA Scrn (Ecstasy) Negative (Negative) U Benzodiazepines Scrn Negative (Negative) Urine Cocaine Screen Negative (Negative) U Marijuana (THC) Screen Negative (Negative) Ethyl Alcohol ( - 10) mg/dL Imaging Data CT scan - head: Radiologist's Impression: PROCEDURE:? CT HEAD/BRAIN WO CON ? INDICATIONS:? Fall ? TECHNIQUE:? Noncontrast 4.5 mm thick angled axial sections acquired from the foramen magnum to the vertex, with coronal and sagittal reformats.? For radiation dose reduction, the following was used:? automated exposure control, adjustment of mA and/or kV according to patient size.? ? COMPARISON:? [facility], CR, XR CHEST 1V, 10/23/2020, 12:13. ? FINDINGS:? Image quality:? There is artifact associated with the metallic hardware. ? ? CSF spaces:? Basal cisterns are patent.? No extra-axial fluid collections.? Ventricles are normal in size and shape.? ? Brain:? Coils can be seen within the [id number] posteriorly, to the right of the midline, with associated streak artifact. ? There is abnormal vasogenic edema seen involving both cerebral hemispheres, right worse than left.? Potential hyperdense masses can be seen.? Mass effect can be seen on the right anteriorly, with midline shift of 8 mm.? No definite herniation can be seen at this time. ? No midline shift.? No intracranial masses or hemorrhage.? Mann-white matter interface is normal.? ? Skull and face:? Calvarium and visualized facial bones are intact, without suspicious lesions.? ? Sinuses:? Visualized sinuses and mastoids are clear.? IMPRESSION:? No acute intracranial hemorrhage is seen.? ? These imaging findings are highly worrisome for metastatic disease, with bilateral apparent hyperdense masses with surrounding vasogenic edema. ? Mass effect is seen, with midline shift of 8 mm. ? 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 ? If it would be helpful for clinical management decision making, please consider a dedicated brain MRI (without and with contrast)? for further evaluation (assuming that there is no contraindication).? ? ? Note: Dr. Pollack was not available to discuss this case at the time of this dictation. Findings and recommendations relayed to Dr. Pollack via ER staff, Dolores, at 12:06 p.m. [place] time on October 23, 2020. ? Dr. Pollack will call back if there are any questions.? ? ? Chest x-ray: Radiologist's Impression: PROCEDURE:? XR CHEST 1V ? INDICATIONS:? weakness, tiredness ? TECHNIQUE:? One view of the chest was acquired.? ? COMPARISON:? None. ? FINDINGS:? ? Surgical changes and devices:? None.? ? Lungs and pleura:? Lungs are clear.? No pleural effusions or pneumothorax.? ? Mediastinum:? Mediastinal contours appear normal.? Heart size is normal.? ? Bones and chest wall:? No suspicious bony lesions.? Overlying soft tissues appear unremarkable.? ? IMPRESSION:? No acute pulmonary process. ? ? Dictated by: Ginger Ellison M.D. on 10/23/2020 at 13:20 ? ? Approved by: Ginger Ellison M.D. on 10/23/2020 at 13:20 ? MDM Narrative Medical decision making narrative: 60-year-old female with past medical history breast cancer, epilepsy, hypothyroidism, aneurysm of posterior inferior cerebellar artery, hyperlipidemia, hypertension presents to the ED with fatigue, left-sided weakness for 1 week. Concern for dehydration versus intracranial bleed versus electrolyte derangements versus anticholinergic symptoms versus alcohol withdrawal versus drug toxicity. Will order labs, troponin, EKG, chest x-ray, urine drug screen, salicylate levels, acetaminophen level, Keppra level. Will order CT head. Will reassess. Discharge Plan Departure Patient Disposition: Home Clinical Impression: Weakness Instructions: DI for Brain Tumor Activity Restrictions/Additional Instructions: You were evaluated in the ED for weakness today. Your head CT showed multiple intracranial masses in the brain, which are suggestive of metastatic disease. Your TSH level was also low. Please call Carol, the social media senior associate at at the [facility] at [phone], 1st thing tomorrow morning Carol will get an appointment with the medical oncologist for you, which is the 1st step of your t reatment. The [facility] will also coordinate a referral to Radiation Oncology with Dr. Frazier registers office. If you will feel unwell, your symptoms worsen, please return to the ED. Prescriptions: New dexamethasone 6 mg tablet 6 mg PO QID Qty: 20 RF: 0 No Action levothyroxine 100 mcg tablet 100 mcg PO DAILY Qty: 90 RF: 0 omega-3 fatty acids 1,000 mg capsule 1,000 mg PO DAILY RF: 0 mecobalamin (vitamin B12) 1,000 mcg tablet,chewable 1,000 mcg PO DAILY RF: 0 cholecalciferol (vitamin D3) 125 mcg (5,000 unit) capsule 125 mcg PO DAILY RF: 0 turmeric root extract 500 mg capsule 1,500 mg PO DAILY RF: 0 garlic 1,000 mg capsule 1,000 mg PO QPC RF: 0 levetiracetam 1,000 mg tablet for suspension 1,000 mg PO BID Qty: 180 RF: 3 anastrozole 1 mg tablet 1 mg PO DAILY Qty: 90 RF: 3 lisinopril 40 mg tablet 40 mg PO DAILY Qty: 90 RF: 3 Referrals: Sander Macdonald MD [Primary Care Provider] - ED Sign-out <Gloria Pollack DO - Last Filed: 10/25/20 07:22> Cosign ED Attending Zane Attestation: I was immediately available in the department for consultation. Documentation has been reviewed. Case was di scussed at length. Patient was seen by myself. There was some concern about and discharge home based on patient's imaging particularly her head CT. Patient's neurologic exam at this moment is reassuring and after discussion with patient by nurse practitioner as well as myself patient or return home but with plan for contact tomorrow and urgent evaluation by Oncology, Radiation Oncology. And to continue dexamethasone until her new healthcare team feels appropriate to adjust. Patient was also offered to return for a recheck in the next 12-24 hours. She expresses that she understands this. She was also given strict return precautions and told to return if she has any worsening symptoms or concerning symptoms.
[2020-10-23 13:27] LABS: Add Manual Diff / Slide Review NO; Basophils Absolute Auto 0 /uL (0-100); Basophils Percent Auto 0.6 % (0-2); Eosinophils Absolute Auto 100 /uL (0-450); Eosinophils Percent Auto 1.8 % (2-4); Hematocrit 38.5 % (36-46); Hemoglobin 12.8 g/dL (12.0-16.0); Lymphocytes Absolute Auto 1100 /uL (1100-4500); Lymphocytes Percent Auto 22.5 % (25-40); Mean Corpuscular HGB Conc 33.1 % (30-36); Mean Corpuscular Hemoglobin 34.1 PG (26-34); Mean Corpuscular Volume 103.1 fL (80-100); Monocytes Absolute Auto 400 /uL (0-900); Monocytes Percent Auto 8.4 % (3-14); Neutrophils Absolute Auto 3300 /uL (1500-7000); Neutrophils Percent Auto 66.7 % (50-75); Platelet Count 354 X10^3/uL (150-400); Red Blood Cell Count 3.74 X10^6/uL (4.0-5.2); Red Cell Distribution Width 14.5 % (11.6-14.8); White Blood Cell Count 4.9 X10^3/uL (4.5-11.0)
[2020-10-23] MEDS: SODIUM CHLORIDE 0.9% 1,000 ML 1000 ML IV (13:30)
[2020-10-23] MEDS: DEXAMETHASONE 10 MG/ML VIAL IV (13:31)
--- NOTE | 2020-10-23 13:54 | DI.CT.S_ITS ---
PROCEDURE: CT HEAD/BRAIN W CON INDICATIONS: cth WITH MASSES TECHNIQUE: 4.5 mm thick angled axial sections acquired from the foramen magnum to the vertex after the administration of intravenous contrast, with coronal and sagittal reformats. For radiation dose reduction, the following was used: automated exposure control, adjustment of mA and/or kV according to patient size. COMPARISON: [facility], CT, CT HEAD/BRAIN WO CON, 10/23/2020, 12:44. FINDINGS: There are multiple enhancing brain parenchymal masses, highly consistent with metastatic disease. Each of the lesions have varying degrees of some adjacent vasogenic edema. In the lateral aspect of the left cerebellar hemisphere, there is a 1.8 cm mass (series 2, image 9), in the medial aspect of the right cerebellar hemisphere, a 1.1 cm mass (series 2, image 9). In the right occipital lobe on series 2, image 15 there is a 1.4 cm mass. Centered on the falx slightly right of midline but extending into both cerebral hemispheres, there is an approximately 2.4 cm mass on series 2, image 15. Rim enhancing mass measuring 1.3 cm in the left frontal lobe on series 2, image 18. Other smaller left frontal lobe mass on series 2, image 18 measures 0.7 cm. Two adjacent masses in the high right parietal lobe measure approximately 1.1 and 0.8 cm, respectively (series 2 images 20 and 22). There is a 2.1 cm mass in the high right frontal lobe near the vertex on series 2, image 22. There are several additional masses which are not listed individually. Mostly masses demonstrate rim enhancement highly consistent with metastatic disease. The largest mass is present straddling the falx with adjacent vasogenic edema producing approximately 8 mm right left midline shift at the level of the septum pellucidum and subfalcine herniation measuring approximately 12 mm. The basilar cisterns are mildly effaced but are patent. Frontal horns of the lateral ventricles are moderately effaced. Temporal horns are mildly effaced also. IMPRESSION: Multiple (greater than 10) rim enhancing intracranial masses suggestive of metastatic disease. Vasogenic edema surrounding each of the masses, most notably of the largest parafalcine mass producing up to 1.2 cm subfalcine herniation. Dictated by: Mohinder Allan M.D. on 10/23/2020 at 14:51 Approved by: Mohinder Allan M.D. on 10/23/2020 at 14:57
[2020-10-23 14:09] LABS: INR 1.1 (0.9-1.3); Prothrombin Time 12.2 SECONDS (10.1-12.7)
[2020-10-23 14:12] LABS: PTT Partial Thromboplastin Tim 39 SECONDS (26.4-36.2)
[2020-10-23 14:16] LABS: Alanine Aminotransferase 9 IU/L (<35); Albumin Globulin Ratio 1.1 (1.0-2.8); Alkaline Phosphatase 77 U/L (38-126); Aspartate Aminotransferase 28 IU/L (14-36); BUN Creatinine Ratio 9.2 (6-22); Bilirubin Total 0.3 mg/dL (0.2-1.3); Blood Urea Nitrogen 6 mg/dL (7-17); Calcium 9.7 mg/dL (8.4-10.2); Carbon Dioxide 22 mmol/L (22-32); Chloride 107 mmol/L (98-107); Creatine Kinase 33 U/L (30-135); Estimated Glomerular Filt Rate > 60.0 mL/min (>60); Globulin 3.8 g/dL (1.7-4.1); Glucose 99 mg/dL (70-100); HEMOLYSIS < 15 (0-50); Lipase 128 U/L (23-300); Potassium 3.6 mmol/L (3.4-5.1); Sodium 139 mmol/L (137-145); Total Protein 7.8 g/dL (6.3-8.2)
[2020-10-23 14:17] LABS: Ethanol (ETOH) < 10 mg/dL
[2020-10-23 14:20] LABS: Acetaminophen < 10 ug/mL (10-30); Salicylate 19.4 mg/dL (<20)
--- NOTE | 2020-10-23 14:26 | PC.NURSE ---
Pt resting awake in bed, remains GCS 15, talking to her family about the diagnosis. Pt understands her care status in the ED and is awaiting further treatment plan. Appears comfortable, calm.
[2020-10-23 14:27] LABS: NT-proBNP (BNP-Adult 18+) 212 pg/mL (<125); Troponin I < 0.012 ng/mL (0.01-0.034)
--- NOTE | 2020-10-23 14:27 | DI.CT.S_ITS ---
PROCEDURE: CT CHEST ABD PEL W CON INDICATIONS: CTH with mets, hx of breast cancer TECHNIQUE: After the administration of oral and intravenous contrast, axial sections acquired from the supraclavicular neck to the pubic symphysis. Coronal and sagittal reformats were performed. For radiation dose reduction, the following was used: automated exposure control, adjustment of mA and/or kV according to patient size. COMPARISON:None. FINDINGS: Image quality: Excellent. CHEST: Lower Neck: No enlarged lymph nodes in the right neck and supraclavicular area. The largest right inferior cervical lymph node measures 2.1 cm. There are multiple right supraclavicular lymph node measuring up to 1.4 cm. Thyroid: Within normal limits. Axillae: No enlarged lymph nodes. Chest Wall: Bilateral mastectomies with breast implants. Lungs and Airways: Moderate emphysema. Mild subpleural septal thickening and pulmonary fibrosis in the anterior left upper lobe and lingula may be secondary to post radiation change. consolidation or suspicious nodules. Pleura: No pneumothorax or pleural effusions. Heart: Heart size is normal. Mild pericardial thickening or trace pericardial effusion. Thoracic Vessels: The aorta and pulmonary arteries demonstrate normal size. Mediastinum and Jovanna: Marked mediastinal lymphadenopathy. There is a large prevascular mass measuring 3.7 x 4.6 cm anterior and right to the aortic arch and the brachiocephalic vessels. There is compression of the left brachiocephalic vein as well as superior vena cava. There is a large right paratracheal lymph node measuring 3.9 x 5.9 cm. There is a 2.1 x 3.0 cm AP window lymph node. A 2.8 x 2.9 cm subcarinal lymph node is identified. Mild right hilar lymphadenopathy with a 2 cm right hilar lymph node. Esophagus: No wall thickening. Small hiatal hernia. ABDOMEN: Liver: Liver is normal in size. There is heterogeneous enhancement in liver with decreased enhancement in the right hepatic lobe compared to the left hepatic lobe, probably secondary to transient hepatic enhancement difference. The right portal vein, however, appears narrowed and demonstrates poor enhancement but the scan was performed in arterial phase. Hypodensity in the falciform ligament in the left hepatic lobe is most likely secondary to focal fat. Gallbladder: Unremarkable. Biliary ducts: Unremarkable. Pancreas: Unremarkable. Spleen: Unremarkable. Adrenal Glands: Unremarkable. Kidneys and Ureters: Unremarkable. Stomach and Bowel: Stomach, small bowel loops, and colon are normal in caliber. Diverticulosis without diverticulitis. Peritoneum: No abnormal intraperitoneal fluid. No free air. Ventral Wall: No hernia. Abdominal Nodes: Extensive retroperitoneal or mesenteric adenopathy. There is also right external iliac lymphadenopathy. Co Founder And President lymph nodes are listed in the followin) 2.5 x 2.1 cm left para-aortic lymph node just below the left renal hilum (series 2, image 78) 2) 3.1 x 5.3 cm aortocaval lymph node (series 2, image 75) comparison is inferior vena cava. 3) 3.1 x 5.8 cm mesenteric lymph node below the uncinate process of pancreas 4) 1.2 x 1.8 cm right iliac lymph node (series 2, image 122). Vessels: Aorta is normal in size with severe atherosclerotic calcification. There is compression of IVC and the left renal vein. The left renal vein is narrowed. Because of the timing of contrast enhancement, IVC is not opacified. Cannot rule out tumor or bland thrombosis of inferior vena cava or left renal vein. PELVIS: Pelvic Organs: Uterus is absent, consistent with hysterectomy.. Bladder: Unremarkable. Pelvic Nodes: No enlarged lymph nodes. Miscellaneous: No inguinal hernias are seen. Bones: Unremarkable. IMPRESSION: 1. There is right cervical, supraclavicular, mediastinal, right hilar, retroperitoneal, mesenteric and right external iliac lymphadenopathy consistent with metastatic disease versus lymphomas. To further evaluate cervical lymphadenopathy, CT of the neck with contrast is recommended. 2. Bilateral mastectomies and breast implants. No axillary lymphadenopathy. 3. Decreased enhancement in the right hepatic lobe compared to the left hepatic lobe is most likely secondary to transition hepatic enhancement difference. The CT was performed during arterial phase. If there is clinical concern for portal venous thrombosis or hepatic venous thrombosis, Doppler ultrasound may be performed. 4. There is compression of the inferior vena cava and left hepatic vein by retroperitoneal jayleen mass. IVC is not well opacified because of the timing of contrast enhancement, therefore, not well evaluated. Dictated by: Vishnu Perla M.D. on 10/23/2020 at 15:37 Approved by: Vishnu Perla M.D. on 10/23/2020 at 16:10
[2020-10-23 14:33] LABS: D Dimer < 200 ng/mL (<230)
[2020-10-23 14:51] LABS: TSH w/ Reflex to FT4 0.07 uIU/mL (0.47-4.68)
--- NOTE | 2020-10-23 15:13 | CM.SWNOTE ---
SSN/SSBN ASSISTANT NAVIGATOR Note SSN/SSBN ASSISTANT NAVIGATOR receives consult and enters room to meet with patient. Patient is 60 y/o female who presents to the ED with concern for headache and weakness in her left side. Patient has history of breast cancer. Patient endorses her concern after a GLF on Thursday and weakness in her left side and feeling like she is going to fall again. Patient endorses that her PCP is Dr. Macdonald. Patient endorses that she moved to [place] in May from the [facility]. 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 Patient endorses her boss is texting her right now and it is upsetting her because he is requesting a covid test result and she states she provided a negative test weeks ago. ED provider Gene Bell MS, ABILIO STUART just informed patient that her head CT scan results show metastatic disease masses. Patient presents as anxious in responding to this news and dealing with negative communication with her employer. Patient endorses that she will quit her job if she needs to because he is adding stress to her life. Patient endorses that she is not talking with most of her family members on the formerly [facility] [employer] [facility] where she is from and her current supports are her daughter and her cousin. Patient is later seen visiting with friend. SSN/SSBN ASSISTANT NAVIGATOR calls PEREZ Oneil in Oncology who reports that she has been trying to get in touch with patient and patient has not been seen by oncology yet. Yusra reports if patient calls her direct line, patient can schedule appt with patient. SSN/SSBN ASSISTANT NAVIGATOR reviews the above with ED provider who indicates she will put the referral information in patient's d/c packet. SSN/SSBN ASSISTANT NAVIGATOR reviews this with patient who indicates agreement and understanding. patient requests medical not from ED provider to provider to her employer, ED providers are aware. Plan: Patient is to d/c to home when medically clear and to f/u with Oncology SSN/SSBN ASSISTANT NAVIGATOR to set up appt. PEREZ Kyle
[2020-10-23 16:00] LABS: Free T4, Direct Thyroxine 2.22 ng/dL (0.78-2.19)
[2020-10-23 16:30] LABS: Ur Creatinine Normal (Normal); Ur Specific Gravity Normal (Normal); Urine pH Normal (Normal)
[2020-10-23 16:31] LABS: UR Morphine/Opiate cutoff 300 Negative (Negative); Urine Amphetamines Negative (Negative); Urine Barbiturates Negative (Negative); Urine Benzodiazepines Negative (Negative); Urine Cocaine Negative (Negative); Urine MDMA Negative (Negative); Urine Methadone Negative (Negative); Urine Methamphetamines Negative (Negative); Urine Oxycodone Negative (Negative); Urine Phencyclidine Negative (Negative); Urine Tetrahydrocannabinol Negative (Negative); Urine Tricyclic Antidepressant Negative (Negative)
[2020-10-27 13:42] LABS: Levetiracetam Keppra 24.4 ug/mL (10.0-40.0)
== END 2020-10-23 16:31 | disposition home or self-care (01) ==
PROVIDERS: Emergency Medicine; Emergency Provider Student in an Organized Health Care Education/Training Program; PCP Family Medicine
DX: R51.9 Headache, unspecified (principal); R22.0 Localized swelling, mass and lump, head; R53.1 Weakness
CPT/HCPCS: 36415; 70450; 70460; 71045; 71260; 74177; 80053; 80177; 80305; 80320; 80329; 82550; 83690; 83880; 84439; 84443; 84484; 85025; 85379; 85610; 85730; 96361; 96374; 99284; G0480; J1100

== ENCOUNTER → 2020-11-02 09:27 | Outpatient (CLI) | payer OTHER, BC, SELFPAY ==
[2020-11-02 11:09] LABS: COVID19 -Nasal RAPID Negative (Negative)
== END ==
PROVIDERS: PCP Family Medicine; Visit Provider Surgery
DX: Z01.812 Encounter for preprocedural laboratory examination (principal); Z20.822 Contact with and (suspected) exposure to COVID-19
CPT/HCPCS: 87635; C9803

== ENCOUNTER 2020-11-05 10:17 | Day surgery (SDC) | payer OTHER, BC, SELFPAY ==
[2020-11-02 08:18] VITALS: BMI 25.0
[2020-11-05] VITALS (10 sets, daily range): BP systolic 110–142; BP diastolic 74–96; PULSE 80–98; RESP 8–96; TEMP 36.1–36.6; O2SAT 10–98; BMI 25.0
--- NOTE | 2020-11-05 | PATH_ITS ---
[facility] Accession Number: [id number] . 01 Material submitted: . PART A: lymph node - RIGHT NECK LYMPH NODE PART B: lymph node - RIGHT NECK LYMPH NODE . 01 Clinical history: . TREATED FOR BREAST CANCER BRAIN LESIONS S/CERVICAL (...) . 01 Diagnosis: A, B. 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 No lymph node tissue identified. [facility] 11/07/2020 1658 Local . 01 Comment: The overall morphology and immunoprofile are most consistent with small cell carcinoma, and are not phenotypically suggestive of the known history of breast carcinoma. Please see the microscopic description for complete details. . As part of routine quality assurance qa lab technician, Dr. Goodman has reviewed this case and agrees with the diagnosis of small cell carcinoma. The finding of small cell carcinoma was discussed between Dr. Cottrell and Dr. Martinez on 11/07/2020 at 4:30 PM. . 01 Electronically signed: . Alfredo Martinez MD, PhD, Pathologist NPI- [id number] . 01 Gross description: . A. Received in formalin and labeled with right neck lymph node are two pieces of woody soft tissue measuring 1.2 x 0.6 x 0.3 to 0.7 x 0.5 x 0.3 cm. The larger piece is inked, serially sectioned into four slices and entirely submitted in cassette A1. The smaller piece is inked, bisected and entirely submitted in cassette A2. B. Received in formalin and labeled with right neck lymph node is one piece of owody soft tissue measuring 1.5 x 0.7 x 0.4 cm. The tissue is inked, serially sectioned into six slices and entirely submitted in cassettes B1 and B2, with three slices per cassette. The tissue may further fragment during processing. ([id number]) /MRV 11/06/2020 0933 Local . 01 Microscopic: . A, B. Sections are of fibroadipose tissue infiltrated by a proliferation of small epithelioid cells in a diffuse and trabecular growth pattern. Regions of necrosis are readily identified. No lymph node tissue is seen. To further evaluate the malignant cells, a panel of immunohistochemical stains* is performed (each with an appropriately positive control). On block A2, the neoplastic cells are strongly and diffusely positive for NJ immunoreactivity, and show rare immunoreactive cells on a chromogranin immunohistochemical stain. The malignant cells are negative for FRANCISCO-3 immunoreactivity, essentially excluding breast carcinoma. On block B2, the malignant cells are positive for NJ (pancytokeratin), cytokeratin 7 (strong, diffuse), TTF-1 (variable, strong), synaptophysin (diffuse, moderate), and chromogranin (variable) immunoreactivity. The malignant cells are negative for cytokeratin 20, napsin A, and FRANCISCO-3 immunoreactivity. The overall morphology and immunoprofile are most consistent with a small cell carcinoma. . * This test was developed and its performance characteristics determined by [facility]. It has not been cleared or approved by the U.S. Food and Drug Administration. The FDA has determined that such clearance or approval is not necessary. This test is used for clinical purposes. It should not be regarded as investigational or for research. . 01 Pathologist provided ICD-10: C77.9 . 01 CPT . 318581, 385749, [id number], [id number] Performed at: 01 [facility] [address] [place] [address], [place], [place] [id number] MD Raymond Goodman MD Phone: [phone]
[2020-11-05] MEDS: LACTATED RINGERS 1,000 ML 100 ML IV (11:25)
--- NOTE | 2020-11-05 11:29 | PM.PREOP ---
Pre-operative Note Interval Note History & Physical reviewed/Exam performed by Physician: Yes Changes to H&P: No
[2020-11-05] MEDS: CEFAZOLIN 1 GM VIAL 2 GM IV (11:50)
--- NOTE | 2020-11-05 11:57 | SUR.OPER ---
Supine on padded OR bed, head on pillow, arms secured on padded arm boards at <90 degrees abduction, legs uncrossed, safety belt at thigh, tape over blanket over lower legs.
[2020-11-05] MEDS: BUPIVACAINE 0.25% (PF) VIAL 30 ML INJ (11:58)
--- NOTE | 2020-11-05 12:36 | P.OP_ITS ---
Operative Date/Time/Diagnoses Date of procedure: 11/05/20 Time of procedure: 12:36 Pre-op diagnosis: Metastatic breast cancer Post-op diagnosis: same Procedure & Clinicians Procedure: Excisional biopsy of neck lymph node Same procedure as scheduled: Yes Indications: History of breast cancer now with brain lesions and neck lymphadenopathy. Surgeon: Jabari Cottrell Click Yes if Unassisted: Yes Anesthesia Type: General Operative Notes Findings: Cervical Lymphadenopathy Specimen(s): other (Right neck lymph node) Estimated Blood Loss (mL): 20 Procedure in detail: Patient was brought to the operating room placed supine on table. Bilateral lower extremity compression devices were applied. General anesthesia was induced she was intubated with a LMA. She received 2 g of Ancef. She was prepped and draped in sterile fashion. Time-out performed. At the base of the neck posterior to the sternocleidomastoid there was palpable lymphadenopathy within the superficial cervical chain. An incision over the most prominent lymph node was made the skin was divided with the scalpel subcutaneous tissues with electrocautery. There was a prominent lymph node of approximately 1 cm that was dissected out circumferentially. It was ligated with silk suture. It was passed off the field in fragments. Hemostasis was achieved. The wound was then closed the subcutaneous tissue with 3-0 Vicryl skin with 4-0 Monocryl followed by the application of Dermabond and a Steri- Strip. Patient emerged from anesthesia was extubated and transferred to recovery in stable condition. Complications: none Post-operative Condition: stable Disposition: same day surgery
[2020-11-05] MEDS: OXYCODONE IR 5 MG TABLET PO (13:20)
[2020-11-05] MEDS: ACETAMINOPHEN 325 MG TABLET 650 MG PO (13:20)
--- NOTE | 2020-11-08 12:24 | PM.CALLCOV.1 ---
Call Coverage Note Note Date of Patient Contact: 11/08/20 Time of Patient Contact: 12:24 Narrative of Care Provided: spoke with patient and her daughter regarding pathology report. 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 Spoke with oncology Dr. Esquivel. Will schedule for port a cath placement next week.
== END 2020-11-05 13:50 | disposition home or self-care (01) ==
PROVIDERS: PCP Family Medicine; Referring Provider Surgery; Visit Provider Surgery
PROC: (CPT 38500; principal; 2020-11-05 11:30)
DX: C77.0 Secondary and unspecified malignant neoplasm of lymph nodes of head, face and neck (principal); Z85.3 Personal history of malignant neoplasm of breast; I10 Essential (primary) hypertension
CPT/HCPCS: 38500; J0690; J2704; J3010

== ENCOUNTER 2020-11-14 10:17 | Day surgery (SDC) | payer OTHER, BC, SELFPAY ==
[2020-11-08 14:20] VITALS: BMI 25.0
[2020-11-14] VITALS (9 sets, daily range): BP systolic 125–147; BP diastolic 86–98; PULSE 75–87; RESP 10–20; TEMP 36.4–36.9; O2SAT 93–98; BMI 25.0
--- NOTE | 2020-11-14 | DI.RAD.S_ITS ---
PROCEDURE: XR CHEST 1V INDICATIONS: Failed PICC line/Midline placed TECHNIQUE: One view of the chest was acquired. COMPARISON: [facility], CR, XR CHEST 1V, 10/23/2020, 12:13. FINDINGS: Surgical changes and devices: Left-sided PICC line tip is seen projecting in the region of left brachiocephalic vein above the aortic arch. Lungs and pleura: Lungs are clear. No pleural effusions or pneumothorax. Mediastinum: Aortic arch calcifications are seen. Mildly tortuous thoracic aorta is noted. Heart size is normal. Bones and chest wall: No suspicious bony lesions. Overlying soft tissues appear unremarkable. IMPRESSION: Left-sided PICC line tip is seen projecting in the region of left brachiocephalic vein as above. No focal infiltrate, pleural effusion or pneumothorax. Dictated by: Toñito Del Castillo M.D. on 11/14/2020 at 18:27 Approved by: Toñito Del Castillo M.D. on 11/14/2020 at 18:28
[2020-11-14] MEDS: LACTATED RINGERS 1,000 ML 100 ML IV (11:02)
[2020-11-14 11:06] LABS: COVID19 -Nasal RAPID Negative (Negative)
--- NOTE | 2020-11-14 11:19 | SUR.OPER ---
Supine on padded OR bed, head on pillow, arms secured on padded arm boards at <90 degrees abduction, legs uncrossed, safety belt at thigh, tape over blanket over lower legs.
--- NOTE | 2020-11-14 11:20 | PM.HP.1 ---
History of Present Illness History of Present Illness Date Patient Seen: 11/14/20 Time Patient Seen: 11:20 Chief complaint: SDC Narrative: Mrs. hutchinson is a 60-year-old woman who has a new diagnosis small cell carcinoma who requires a Port-A-Cath placement. Origin of her malignancy is unknown. She does have a history of breast cancer developed diffuse lymphadenopathy of the chest and neck in addition to brain lessions. A biopsy of the right neck lymph node last week demonstrates small cell carcioma it had been suspected she had metastatic breast cancer and this would be identified in the lymph node however it actually demonstrated small cell carcinoma which was surprising. Oncology recomends chemotherapy for treatment of her new small cell carcinoma. She has had a port previously for breast cancer. Patient History Medical History Aneurysm of posterior inferior cerebellar artery Breast cancer, stage 2 HLD (hyperlipidemia) Hyperparathyroidism Hypertension Hypothyroidism Measles Nonintractable epilepsy with complex partial seizures Osteopenia Seizures Surgical History History of bilateral mastectomy Hx of lymph node biopsy (11/05/20) Family & Social History Family History Father Cancer Social History: household members none Tobacco & Substance use: Smoking Status Former smoker alcohol intake former alcohol intake frequency other Substance Use Type marijuana Meds Home Medications and Allergies Home Medications Medication Instructions Recorded Confirmed Type anastrozole 1 mg tablet 1 mg PO DAILY #90 tab 09/20/20 11/14/20 Rx cholecalciferol (vitamin D3) 125 125 mcg PO DAILY 09/20/20 11/14/20 History mcg (5,000 unit) capsule garlic 1,000 mg capsule 1,000 mg PO QPC 09/20/20 11/14/20 History levetiracetam 1,000 mg tablet for 1,000 mg PO BID #180 tab 09/20/20 11/14/20 Rx oral suspension lisinopril 40 mg tablet 40 mg PO DAILY #90 tab 09/20/20 11/14/20 Rx mecobalamin (vitamin B12) 1,000 1,000 mcg PO DAILY 09/20/20 11/14/20 History mcg chewable tablet omega-3 fatty acids 1,000 mg 1,000 mg PO DAILY 09/20/20 11/14/20 History capsule turmeric root extract 500 mg 1,500 mg PO DAILY cap 09/20/20 11/08/20 History capsule levothyroxine 100 mcg tablet 100 mcg PO DAILY #90 tab 09/27/20 11/14/20 Rx dexamethasone 4 mg tablet 4 mg PO TID 10/29/20 11/14/20 History pantoprazole 40 mg tablet,delayed 40 mg PO DAILY #30 tab 10/29/20 11/14/20 Rx release zolpidem 5 mg tablet (Ambien) 5 mg PO BEDTIME PRN #30 tab 10/29/20 11/14/20 Rx anastrozole 1 mg tablet 1 mg PO 11/05/20 History Allergies Allergy/AdvReac Type Severity Reaction Status Date / Time No Known Drug Allergies Allergy Verified 11/14/20 10:32 Exam Vital Signs (past 8 hours): - 11/14/20 10:42 Temperature 97.6 F Pulse Rate 86 Respiratory Rate 16 Blood Pressure 136/86 Pulse Oximetry 97 Oxygen Delivery Method Room Air Narrative Exam Narrative: Constitutional-She is oriented to person, place and time. No apparent distress Cardiovascular- regular rate, no peripheral edema Pulmonary-unlabored respiratory effort, no audible wheezing Abdominal-soft, non-tender, non-distended Musculoskeletal-no cyanosis or clubbing Neurological-nonfocal, normal strength throughout Skin-warm and dry Objective Labs Labs: Laboratory Results - last 24 hr 11/14/20 10:30 SARS-CoV-2 (PCR) Negative Assessment & Plan Assessment and plan (1) Small cell carcinoma: Status: Acute Assessment & Plan narrative: 60-year-old woman with a new diagnosis of small cell carcinoma unknown origin requires a Port-A-Cath placement for chemotherapy. We discussed technical details of the procedure. Procedural risks including bleeding, infection, damage to surrounding structures, pneumothorax, embolism, device failure were discussed. Her questions have been answered and she is in agreement with this plan Time Spent With Patient Critical Care time: I spent a total of [] minutes of critical care time on this patient's care today; this time is exclusive of procedural time.
[2020-11-14] MEDS: CEFAZOLIN 1 GM VIAL 2 GM IV (12:02)
[2020-11-14] MEDS: BUPIVACAINE 0.25% (PF) VIAL 30 ML INJ (12:10)
[2020-11-14] MEDS: HEPARIN 5,000 UNIT, SODIUM CHLORIDE 0.9% 50 ML IV (12:11)
[2020-11-14] MEDS: ACETAMINOPHEN 325 MG TABLET 650 MG PO (14:32)
[2020-11-14] MEDS: BENZOCAINE/MENTHOL 1 LOZ PKT 1 EACH PO (14:43)
--- NOTE | 2020-11-14 14:55 | SUR.PHASEI ---
1445 Patient transferred at 1410 to OPD to get pt to use the BR. Steady on feet. VSS. Complained of sore throat. See order for Cepacol rekha which was given and Tylenol. Dr Denney notified of sore throat. Warm water and warm broth given. SBAR report at bedside to Jimena RODRIGUES.
--- NOTE | 2020-11-14 15:33 | SUR.PHASEII ---
Ice placed to r neck, r chest, awaiting DI to place PICC line.
--- NOTE | 2020-11-14 17:26 | SUR.PHASEII ---
Pt checked on through out stay, given po fluids and snacks. Ice to surgical areas, areas remained c/d/i. Jaz delayed due to her schedule, pt given updates. 1700 Janeth finally here. Report to Adele.
--- NOTE | 2020-11-14 18:28 | SUR.PHASEII ---
Stayeds in hospital to get a PICC line placed. Unable to get PICC line in so Midline cath was placed in left upper arm. Verified with CXR. then sent home.
--- NOTE | 2020-11-15 10:47 | P.OP_ITS ---
Operative Date/Time/Diagnoses Date of procedure: 11/14/20 Time of procedure: 10:47 Pre-op diagnosis: small cell carcinoma Post-op diagnosis: same Procedure & Clinicians Procedure: aborted port a cath placment Same procedure as scheduled: Yes Indications: 60 y.o woman with bulk lymphadenopathy of bilateral neck and mediastinum here for port a cath placement secondary to small cell lymphoma. Surgeon: Jabari Cottrell Anesthesia Type: General Operative Notes Findings: unable to pass the catheter into the SVC. Estimated Blood Loss (mL): 100 Procedure in detail: . Patient was brought to the operating room placed supine on the table. Bilateral lower extremity compression devices were applied. She received 2 g of Ancef. Anesthesia was induced she was intubated with an LMA. She was prepped and draped sterile fashion. Time-out performed. Under are ultrasound guidance the right internal jugular vein was identified and entered with the finding needle. The guidewire was then passed into the vein its placement was confirmed by fluoroscopy. The vessel was then dilated the catheter was passed into the vessel. A incision was made on the right chest wall for a subcutaneous pocket. The catheter was then tunneled from the neck to the chest. There was persistent bleeding from the right neck. Attempts were made using digital pressure, placement of Surgicel, and extended the puncture wound in the right neck to further examine the wound. I could not determine if the bleeding was arising from the jugular or branches of another vessel babak yasmin to her diffuse cervical lymphadenoapathy. Ultimately I removed the catheter. With a combination of time, reapproximating the subcutaneous tissue of the neck hemostasis was achieved. I next attempted to access the R subclavian vein. The vessel was accessed fluroscopy confirmed the position of the guide wire. Venous appearing blood returned the vessel was dilated. At this point there was return of pulsatile bleeding from the vessel suggesting the subclavian artery had been entered. Pressure was held for 10 min continuously at which point hemostasis was achieved. At this point I aborted the procedure. I suspect that because of her extensive bilateral cervical and mediastinal lymphadenopathy her anatomy was distorted and I could not safely proceed. I thought it was unsafe to proceed with a left sided subclavian in case she could develop bilateral pneumothorax nor was the left IJ a better alternative. The chest pocket was closed with vircyl followed by monocryl. She emerged from anesthesia transferred to recovery in stable condition. I spoke with her oncologist and we decided to proceed with a PICC line at least temporarily to facilitate chemotherapy until a port can be safely placed. Complications: none Post-operative Condition: stable Disposition: same day surgery
== END 2020-11-14 18:30 | disposition home or self-care (01) ==
PROVIDERS: PCP Family Medicine; Referring Provider Surgery; Visit Provider Surgery
PROC: (CPT 36561; principal; 2020-11-14 11:45)
DX: C80.1 Malignant (primary) neoplasm, unspecified (principal); Z85.3 Personal history of malignant neoplasm of breast; E03.9 Hypothyroidism, unspecified; I10 Essential (primary) hypertension; E78.5 Hyperlipidemia, unspecified; G40.209 Localization-related (focal) (partial) symptomatic epilepsy and epileptic syndromes with complex partial seizures, not intractable, without status epilepticus; Z20.822 Contact with and (suspected) exposure to COVID-19; Z53.09 Procedure and treatment not carried out because of other contraindication
CPT/HCPCS: 36561; 71045; 76000; 87635; C1788; J0690; J1644; J2704; J3010

== ENCOUNTER → 2020-11-28 13:21 | Outpatient (CLI) | payer BC, OTHER, SELFPAY ==
--- NOTE | 2020-11-28 13:22 | DI.CT.S_ITS ---
PROCEDURE: CT CHEST W CON INDICATIONS: lung cancer, possible SVC syndrome TECHNIQUE: After the administration of intravenous contrast, 5 mm thick sections acquired from the pulmonary apices to the posterior costophrenic angles. 1 mm axial lung, 5 mm thick coronal and sagittal reformats and 7 mm axial MIP were acquired. For radiation dose reduction, the following was used: automated exposure control, adjustment of mA and/or kV according to patient size. COMPARISON: [facility], CT, CT CHEST ABD PEL W CON, 10/23/2020, 14:31. FINDINGS: Image quality: Excellent. Lungs and pleura: No acute air space opacities. No pleural effusions or pneumothorax. Central and peripheral airways are patent and normal in caliber. Moderate biapical pulmonary emphysema present. No suspicious nodules. Right middle lobe medial atelectasis. Small right basilar pleural effusion. Mediastinum: Bulky jayleen mediastinal conglomerate mass lesion occludes the left brachiocephalic vein. The right distal internal jugular vein is patent. No mass results in at least 90 to 95 percent mid SVC stenosis without complete occlusion, increased from the prior. The mass surrounds 75 percent of the right main pulmonary artery as well with mild stenosis. No occlusion. Left hilar bulky adenopathy present as well. Bones and chest wall: No suspicious bony lesions. No vertebral body compression fractures. No axillary or supraclavicular adenopathy by size criteria. Thyroid gland unremarkable. Bilateral breast implants noted. There is breast skin thickening noted on the left, increased from the prior. Abdomen: Mesenteric adenopathy is partially imaged IMPRESSION: 1. Increasing SVC stenosis related to bulky mediastinal mass without complete occlusion. There is pre occlusive 90-95 percent stenosis. 2. Left brachiocephalic venous thrombosis 3. Bulky mediastinal conglomerate jayleen mass lesion has increased in size compared to the prior. Mass surrounds 75 percent of the right main pulmonary artery with mild stenosis. 4. Moderate pulmonary emphysema and small right pleural effusion. Approved by: Jaquan Merlos M.D. on 11/28/2020 at 14:06
--- NOTE | 2020-11-28 13:28 | DI.CT.S_ITS ---
PROCEDURE: CT SOFT TISSUE NECK W CON INDICATIONS: lung cancer, possible SVC syndrome TECHNIQUE: After the administration of intravenous contrast, 3.0 mm axial sections acquired from the sella to the aortic arch. Additional oblique axial 3.0 mm sections acquired through the pharynx. 3 mm thick coronal and sagittal reformats were generated. For radiation dose reduction, the following was used: automated exposure control. COMPARISON: [facility], CT, CT CHEST W CON, 11/28/2020, 13:41. [facility], MR, MR BRAIN WITH/WITHOUT CONTRAST, 11/08/2020, 14:31. FINDINGS: Skull Base: The visualized intracranial contents, skull, and orbits are unremarkable. Visualized paranasal sinuses are clear. Vasogenic edema in the right frontal lobe is partially imaged, similar to prior MRI. Aneurysm coil noted associated with the tip of the basilar artery. Pharynx and Larynx: The nasopharyngeal airway is patent and midline. Parapharyngeal soft tissues including palatine tonsils and base of the tongue are normal. Retropharyngeal space unremarkable. Normal appearance of the false and true vocal cords. Muscles and Fascial Planes: Fascial planes are well maintained. No abscess or mass lesion. Lymph Nodes: Bulky bilateral deep cervical adenopathy noted with low-density cores reflecting internal necrosis. Largest on the right is a level 2 B node measuring 2.2 cm, largest on the left measures 1.8 cm, also level 2 B. Vasculature: Right internal jugular vein is widely patent. The left internal jugular vein occludes distally near the brachiocephalic junction related to large mediastinal mass lesion. Submandibular and Parotid Glands: Normal in size and attenuation. Thyroid: Unremarkable. No enlarged or calcified nodules. Bones: No acute fracture. No osteolytic or blastic lesion is evident. Normal bone mineralization. Multilevel degenerative disc disease and arthropathy noted in the cervical spine. C3-4 and C4-5 anterior cervical discectomy and fusion with low profile thick instrumentation noted. Moderate central stenosis present C3-4. IMPRESSION: 1. Bulky bilateral metastatic adenopathy with internal necrosis. 2. Distal left IJV thrombosis related to large mediastinal mass lesion further discussed in the concurrent CT chest report. Patent right internal jugular vein. 3. Partially imaged right frontal lobe vasogenic edema associated with intracranial metastasis, further detailed on prior MRI brain report. 4. 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 Approved by: Jaquan Merlos M.D. on 11/28/2020 at 13:55
== END ==
PROVIDERS: PCP Family Medicine; Referring Provider Internal Medicine Medical Oncology; Visit Provider Internal Medicine Medical Oncology
DX: C50.912 Malignant neoplasm of unspecified site of left female breast; C78.01 Secondary malignant neoplasm of right lung; C79.31 Secondary malignant neoplasm of brain; C77.3 Secondary and unspecified malignant neoplasm of axilla and upper limb lymph nodes; J43.9 Emphysema, unspecified; R93.89 Abnormal findings on diagnostic imaging of other specified body structures; I87.1 Compression of vein; I82.622 Acute embolism and thrombosis of deep veins of left upper extremity; J90 Pleural effusion, not elsewhere classified; G93.6 Cerebral edema; I82.C12 Acute embolism and thrombosis of left internal jugular vein
CPT/HCPCS: 70491; 71260; Q9967

== ENCOUNTER → 2020-12-12 12:02 | Outpatient (CLI) | payer OTHER, BC, SELFPAY ==
--- NOTE | 2020-12-12 12:06 | DI.RAD.S_ITS ---
PROCEDURE: FL GUIDED PICC PLACEMENT INDICATIONS: chemo; port insertion unsuccessful COMPARISON: None. FINDINGS: PICC was placed by the intravenous therapy team from the right side. Fluoroscopic spot film demonstrates the tip of PICC projecting to the area of SVC. IMPRESSION: Tip of PICC projects to the area of SVC. Dictated by: Toñito Del Castillo M.D. on 12/13/2020 at 22:30 Approved by: Toñito Del Castillo M.D. on 12/13/2020 at 22:30
--- NOTE | 2020-12-26 15:43 | PC.NURSE ---
Picc placement documentation faxed to [facility] at [facility]
== END ==
PROVIDERS: PCP Family Medicine; Referring Provider Internal Medicine Hematology & Oncology; Visit Provider Internal Medicine Hematology & Oncology
DX: Z45.2 Encounter for adjustment and management of vascular access device (principal); C50.912 Malignant neoplasm of unspecified site of left female breast; C78.01 Secondary malignant neoplasm of right lung; C78.02 Secondary malignant neoplasm of left lung; C77.3 Secondary and unspecified malignant neoplasm of axilla and upper limb lymph nodes
CPT/HCPCS: 36573

== ENCOUNTER → 2020-12-28 13:51 | Outpatient (CLI) | payer OTHER, BC, SELFPAY ==
[2020-12-28 15:05] LABS: COVID19 -Nasal RAPID Negative (Negative)
== END ==
PROVIDERS: PCP Family Medicine; Visit Provider Surgery
DX: Z01.812 Encounter for preprocedural laboratory examination (principal); Z20.822 Contact with and (suspected) exposure to COVID-19
CPT/HCPCS: 87635

== ENCOUNTER 2020-12-31 08:15 | Day surgery (SDC) | payer BC, SELFPAY ==
[2020-12-31] VITALS (7 sets, daily range): BP systolic 90–125; BP diastolic 66–83; PULSE 99–114; RESP 12–18; TEMP 36.3–36.8; O2SAT 93–98; BMI 23.2
--- NOTE | 2020-12-31 | DI.RAD.S_ITS ---
PROCEDURE: XR CHEST 1V INDICATIONS: PORTACATH PLACEMENT TECHNIQUE: One fluoroscopic image. COMPARISON: [facility], CR, XR CHEST 1V, 11/14/2020, 17:50. FINDINGS: Surgical changes and devices: Right laura catheter with tip projecting over the low SVC region. IMPRESSION: Right laura catheter as detailed above. Dictated by: Edgar Ravi M.D. on 12/31/2020 at 11:56 Approved by: Edgar Ravi M.D. on 12/31/2020 at 11:58
[2020-12-31] MEDS: LACTATED RINGERS 1,000 ML 42 ML IV (10:00)
--- NOTE | 2020-12-31 10:29 | PM.PREOP ---
Pre-operative Note COVID-19 COVID-19 status: Negative Result date/Date tested (Pos, Neg/Pending): 12/28/20 Interval Note History & Physical reviewed/Exam performed by Physician: Yes Changes to H&P: No ASA Class (for procedural sedation): III
[2020-12-31] MEDS: CEFAZOLIN 1 GM VIAL 2 GM IV (11:07)
--- NOTE | 2020-12-31 11:18 | SUR.OPER ---
Supine on padded OR bed, head on pillow, arms padded and tucked at sides, legs uncrossed, safety belt at thigh, tape over blanket over lower legs .
[2020-12-31] MEDS: HEPARIN 5,000 UNIT/ML VIAL 5000 UNIT IV (11:24)
[2020-12-31] MEDS: LIDOCAINE 1% W/EPI 20 ML INJ (11:25)
[2020-12-31] MEDS: SODIUM CHLORIDE 0.9% 50 ML INJ (11:25)
[2020-12-31] MEDS: SODIUM CHLORIDE 0.9% FLUSH 10 ML IV (11:26)
[2020-12-31] MEDS: BUPIVACAINE 0.5% (PF) VIAL 30 ML INJ (11:27)
--- NOTE | 2020-12-31 11:51 | DI.RAD.S_ITS ---
PROCEDURE: XR CHEST 1V INDICATIONS: Port a Cath placed in OR TECHNIQUE: One view of the chest was acquired. COMPARISON: [facility], CR, XR CHEST 1V, 12/31/2020, 12:37. [facility], CR, XR CHEST 1V, 11/14/2020, 17:50. FINDINGS: Surgical changes and devices: A right internal jugular Port-A-Cath is seen with catheter tip projecting over the superior cavoatrial junction. A right-sided PICC is seen with tip in the region of the confluence of the innominate veins. Lungs and pleura: Lungs are clear. No pleural effusions or pneumothorax. Mediastinum: Mediastinal contours appear normal. Heart size is normal. Bones and chest wall: No suspicious bony lesions. Overlying soft tissues appear unremarkable. IMPRESSION: Right chest Port-A-Cath in satisfactory position. Dictated by: Cortez Espinoza M.D. on 12/31/2020 at 12:08 Approved by: Cortez Espinoza M.D. on 12/31/2020 at 12:12
--- NOTE | 2020-12-31 11:52 | PM.OP.1 ---
Operative Date/Time/Diagnoses Date of procedure: 12/31/20 Time of procedure: 11:52 Pre-op diagnosis: Small cell carcinoma Post-op diagnosis: same Procedure & Clinicians Procedure: Port a Cath Same procedure as scheduled: Yes Indications: Small cell carcinoma Surgeon: Navneet Marley Click Yes if Unassisted: Yes Anesthesia Type: General Operative Notes Procedure in detail: The patient was brought to the operating room, placed on the table in the supine position with the arms tucked. Ancef was administered. Anesthesia was induced via LMA. A time-out was performed. The right chest and neck were prepped and draped in the usual fashion. An ultrasound was used to identify the right internal jugular vein. The vein was noted to be patent. The right internal jugular vein was accessed via the Seldinger technique under ultrasound guidance. The guidewire was inserted into the superior vena cava. C-arm was used confirmed proper position of the guidewire in the superior vena cava and no ectopy was noted. The needle was removed and the wire was clamped to the drape. Next, a port pocket was created just inferior to the medial clavicle through the old surgical scar. Dissection was carried down to the pectoral fascia. A subcutaneous pocket was created using a combination of sharp and blunt dissection. Next, the port which was primed with injectable saline, was secured to the fascia with 3-0 PDS sutures left untied and clamped. The neck incision was extended with an 11 blade scalpel to approximately 5 mm. The dilator and peel-away sheath were inserted over the wire without resistance. The catheter was passed from the neck incision to the chest incision in the subcutaneous tissue using the tunnelling device. The wire and dilator were then removed and the catheter inserted through the peel-away sheath to deliver it into the superior vena cava. The depth of the device was checked using the C-arm and the tip of the device was noted to be in the superior vena cava. The distal end of the catheter was then trimmed and attached to the port using the strain relief collar. A final image showed good position of the catheter with no kinks. The port was then tucked into the subcutaneous pocket and the sutures were tied to secure the device. The port was then accessed using the Parekh needle and it was noted that the device cj and flushed easily without resistance. Approximately 4 mL of heparinized saline were injected into the device. The skin incisions were closed with 3-0 Vicryl and 4-0 Monocryl. Steri-Strips were applied patient was awakened and brought to recovery room EBL: 5 mL Ultrasound: The right internal jugular vein was patent. The right carotid artery was visualized adjacent to the vein. Venipuncture was visualized in real-time using the ultrasound. Fluoroscopy: The device was positioned appropriately with the distal end of the catheter near the atriocaval junction. There were no kinks in the catheter. Post-operative Condition: stable Disposition: PACU
--- NOTE | 2020-12-31 12:32 | SUR.PHASEII ---
Received to Phase II. Report from LILIA Santos. Pt comfortable. Denies SOB. Lungs clear. Ice pack applied to right upper chest.
[2020-12-31] MEDS: HYDROCODONE/ACET 5/325 TABLET 1 TAB PO (12:36)
== END 2020-12-31 12:54 | disposition home or self-care (01) ==
PROVIDERS: PCP Family Medicine; Referring Provider Surgery; Visit Provider Surgery
PROC: (CPT 36561; principal; 2020-12-31 09:45)
DX: C34.90 Malignant neoplasm of unspecified part of unspecified bronchus or lung (principal); I10 Essential (primary) hypertension; E78.5 Hyperlipidemia, unspecified; E03.9 Hypothyroidism, unspecified; G40.209 Localization-related (focal) (partial) symptomatic epilepsy and epileptic syndromes with complex partial seizures, not intractable, without status epilepticus; E21.3 Hyperparathyroidism, unspecified; Z85.3 Personal history of malignant neoplasm of breast
CPT/HCPCS: 36561; 71045; 76000; C1788; J0690; J1100; J1644; J2250; J2405; J2704; J3010

== ENCOUNTER → 2021-02-26 11:26 | Outpatient (CLI) | payer BC, SELFPAY ==
--- NOTE | 2021-02-26 11:53 | DI.CT.S_ITS ---
PROCEDURE: CT HEAD/BRAIN WO/W CON INDICATIONS: brain metastasis TECHNIQUE: 4.5 mm thick angled axial sections acquired from the foramen magnum to the vertex both before and after the administration of intravenous contrast, with coronal and sagittal reformats. For radiation dose reduction, the following was used: automated exposure control, adjustment of mA and/or kV according to patient size. COMPARISON: [facility], CT, CT HEAD/BRAIN WO CON, 10/23/2020, 12:44. [facility], CT, CT HEAD/BRAIN W CON, 10/23/2020, 14:31. [facility], MR, MR BRAIN WITH/WITHOUT CONTRAST, 11/08/2020, 14:31. FINDINGS: Image quality: There is artifact associated with the metallic hardware. CSF spaces: Basal cisterns are patent. No extra-axial fluid collections. Ventricles are symmetric in size and shape. Brain: This patient previously sad numerous intracranial enhancing metastases. These are significantly improved compared to the prior MRI dated 11/08/20 and the prior head CT 10/23/2020. Within the lateral aspect of the left cerebellum, there is a poorly enhancing hypodense mass that measures 2.5 cm, which measured approximately 3 cm on the prior MRI. Within the medial aspect of the right frontal lobe, there is a poorly defined low-density mass that measures approximately 12 mm, which previously measured to 3.5 cm on the MRI. Right-sided [id number] coils can be seen, with associated streak artifact. Apparent stents are also present, yet not well seen. No midline shift. No intracranial bleeds. There is cerebral volume loss for age. There is periventricular white matter chronic small vessel ischemic change. There is intracranial internal carotid artery atherosclerosis. Skull and face: Calvarium and visualized facial bones appear intact, without suspicious lesions. Sinuses: Visualized sinuses and mastoids are clear. IMPRESSION: Clear interval improvement in this patient is numerous known intracranial metastases. Right-sided [id number] coiling can be seen, with apparent stents. Dictated by: Varghese Rosenthal M.D. on 02/26/2021 at 11:40 Approved by: Varghese Rosenthal M.D. on 02/26/2021 at 11:44
--- NOTE | 2021-02-26 12:02 | DI.CT.S_ITS ---
PROCEDURE: CT CHEST ABD PEL W CON INDICATIONS: small cell lung cancer TECHNIQUE: After the administration of oral and intravenous contrast, axial sections acquired from the supraclavicular neck to the pubic symphysis. Coronal and sagittal reformats were performed. For radiation dose reduction, the following was used: automated exposure control, adjustment of mA and/or kV according to patient size. COMPARISON:[facility], CT, CT CHEST ABD PEL W CON, 10/23/2020, 14:31. FINDINGS: Image quality: Excellent. CHEST: Lower Neck: No enlarged lymph nodes. Thyroid: Within normal limits. Axillae: No enlarged lymph nodes. Chest Wall: Right chest MediPort. Bilateral breast implants. Lungs and Airways: Severe emphysematous changes. Minor subpleural fibrosis along the anterolateral left pleural surface. Central and peripheral airways are patent. Pleura: No pneumothorax or pleural effusions. Heart: Normal heart size. Moderate coronary artery calcification. No pericardial effusion. Thoracic Vessels: The aorta and pulmonary arteries demonstrate normal size. Tortuous descending thoracic aortic course. Mediastinum and Jovanna: Confluent precarinal, subcarinal, and right hilar adenopathy significantly decreased compared to the prior study. There is trace low-density soft tissue in the right upper anterior mediastinal region too small to measure. Esophagus: No wall thickening. No hiatal hernia. ABDOMEN: Liver: Normal size. No masses. Gallbladder: Normal wall thickness. Biliary ducts: Nondilated. Pancreas: Normal. Spleen: Normal size. Adrenal Glands: No nodules. Kidneys and Ureters: Normal enhancement. No hydronephrosis or hydroureter. No calcifications. Stomach and Bowel: Stomach, small bowel loops, and colon are unremarkable. Peritoneum: No abnormal intraperitoneal fluid. No free air. Ventral Wall: No hernia. Abdominal Nodes: Near complete interval resolution of retroperitoneal and mesenteric base lymph nodes with trace low-density soft tissue remaining adjacent to the mid SMA and minor soft tissue thickening in the periaortic region. No discrete lymph node identified. Vessels: Aorta and inferior vena cava are normal in size. Moderate abdominal aortic atherosclerotic calcification. Tortuous abdominal aortic course. PELVIS: Pelvic Organs: Surgically absent uterus. Ovaries not seen. Bladder: Normal. Pelvic Nodes: No enlarged lymph nodes. Specifically, interval resolution of the right external iliac enlarged node. Miscellaneous: No inguinal hernias are seen. Bones: Unremarkable. IMPRESSION: 1. Significant interval improvement and mediastinal, hilar, retroperitoneal, mesenteric, and external iliac adenopathy. 2. Severe pulmonary emphysema. 3. Coronary artery and abdominal aortic atherosclerotic calcification.. Dictated by: Melinda Guerrero M.D. on 02/26/2021 at 17:14 Approved by: Melinda Guerrero M.D. on 02/26/2021 at 17:27
== END ==
PROVIDERS: PCP Family Medicine; Referring Provider Internal Medicine Hematology & Oncology; Visit Provider Internal Medicine Hematology & Oncology
DX: C50.919 Malignant neoplasm of unspecified site of unspecified female breast (principal); C77.8 Secondary and unspecified malignant neoplasm of lymph nodes of multiple regions; C80.1 Malignant (primary) neoplasm, unspecified; J43.9 Emphysema, unspecified; I25.10 Atherosclerotic heart disease of native coronary artery without angina pectoris; I70.0 Atherosclerosis of aorta
CPT/HCPCS: 70470; 71260; 74177; Q9967

== ENCOUNTER → 2021-08-23 14:36 | Outpatient (CLI) | payer OTHER, BC, SELFPAY ==
--- NOTE | 2021-08-23 14:38 | DI.CT.S_ITS ---
PROCEDURE: CT HEAD/BRAIN WO/W CON INDICATIONS: small cell lung cancer TECHNIQUE: 4.5 mm thick angled axial sections acquired from the foramen magnum to the vertex both before and after the administration of intravenous contrast, with coronal and sagittal reformats. For radiation dose reduction, the following was used: automated exposure control, adjustment of mA and/or kV according to patient size. COMPARISON: [facility], CT, CT HEAD/BRAIN WO/W CON, 02/26/2021, 11:55. [facility], MR, MR BRAIN WITH/WITHOUT CONTRAST, 11/08/2020, 14:31. [facility], CT, CT HEAD WITH CONTRAST, 05/08/2021, 15:14. FINDINGS: Image quality: There is artifact associated with the metallic hardware. CSF spaces: Basal cisterns are patent. No extra-axial fluid collections. Ventricles are symmetric in size and shape. Brain: Within the left frontal lobe superiorly and laterally, there is a relatively subtle area of enhancement seen, as on series 6, image 21 that measures up to 1 cm. Within the right occipital lobe5 there is a 12 mm nodule seen with surrounding edema, as on series 6, image 13. Within the right insular region, there is an enhancing nodule seen, as on series 6, image 11 measuring 14 mm. Within the left inferior temporal lobe, there is a 16 mm nodule seen, as on series 6, image 7. Surrounding edema can be seen. Within the left cerebellum, there is an additional enhancing nodule seen laterally, as7 on series 6, image 8 measuring 7 mm, with surrounding edema. Basilar tip coiling is seen, with associated streak artifact. There is a left before segment stent seen. No midline shift. There is cerebral volume loss for age. There is periventricular white matter chronic small vessel ischemic change. There is intracranial internal carotid artery atherosclerosis. Skull and face: Calvarium and visualized facial bones appear intact, without suspicious lesions. Sinuses: Visualized sinuses and mastoids are clear. IMPRESSION: Numerous foci of abnormal parenchymal enhancement are seen, which are attributed to recurrent intracranial metastatic disease. Dictated by: Varghese Rosenthal M.D. on 08/23/2021 at 14:55 Approved by: aVrghese Rosenthal M.D. on 08/23/2021 at 14:59
== END ==
PROVIDERS: PCP Family Medicine; Referring Provider Internal Medicine Hematology & Oncology; Visit Provider Internal Medicine Hematology & Oncology
DX: C34.90 Malignant neoplasm of unspecified part of unspecified bronchus or lung (principal); C50.912 Malignant neoplasm of unspecified site of left female breast; C50.919 Malignant neoplasm of unspecified site of unspecified female breast; C77.8 Secondary and unspecified malignant neoplasm of lymph nodes of multiple regions; C80.1 Malignant (primary) neoplasm, unspecified; G40.209 Localization-related (focal) (partial) symptomatic epilepsy and epileptic syndromes with complex partial seizures, not intractable, without status epilepticus; R56.9 Unspecified convulsions
CPT/HCPCS: 70470; Q9967

== ENCOUNTER → 2021-09-25 09:57 | Outpatient (CLI) | payer OTHER, BC, SELFPAY ==
--- NOTE | 2021-09-25 09:57 | DI.CT.S_ITS ---
PROCEDURE: CT CHEST ABD PEL W CON INDICATIONS: small cell lung cancer TECHNIQUE: After the administration of oral and intravenous contrast, axial sections acquired from the supraclavicular neck to the pubic symphysis. Coronal and sagittal reformats were performed. For radiation dose reduction, the following was used: automated exposure control, adjustment of mA and/or kV according to patient size. COMPARISON:[facility], CT, CT CHEST ABDOMEN PELVIS WITH CONTRAST, 05/08/2021, 15:14. [place], [place] PET CT FUSION SKULL 2 THIGH, 09/18/2021, 8:07. [place], [place] PET CT FUSION SKULL 2 THIGH, 05/15/2021, 8:51. [facility], CT, CT CHEST ABD PEL W CON, 02/26/2021, 11:55. FINDINGS: Image quality: Excellent. CHEST: Lower Neck: There is a 2.8 cm mass in the right supraclavicular area new since the last diagnostic CT dated 05/08/2021. It was present on the most recent PET-CT dated 09/18/2021, and appears slightly enlarged (previously measured 2.4 cm). Thyroid: Within normal limits. Axillae: No enlarged lymph nodes. Chest Wall: Unremarkable. There are bilateral breast implants. Lungs and Airways: No consolidation or suspicious nodules. Subpleural density in lingula is most likely atelectasis. Pleura: No pneumothorax or pleural effusions. Heart: Heart size is normal. No pericardial effusion. Severe coronary artery calcification. Thoracic Vessels: The aorta and pulmonary arteries demonstrate normal size. Mediastinum and Jovanna: Mixed interval change in lymphadenopathy. Superior mediastinal lymph node has decreased in size, now measuring 1.0 x 2.4 cm; previously 1.7 x 3.3 cm on 05/08/2021. There is a 1.0 x 1.7 cm retrosternal lymph node, new. There is a 2.3 x 1.5 cm lymph node right of the aortic arch, enlarged compared to the last exam, previously measuring 1.6 x 1.1 cm. Just inferior to the aortic arch anterior to the SVC, there is a 1.4 cm lymph node, unchanged in size. A 1.9 x 2.1 cm precarinal paratracheal lymph node is identified, previously measuring 2.7 x 3.2 cm. Increase in size of subcarinal lymph node. There is a 2.5 x 3.3 cm sub carinal jayleen mass; previously measuring 1.0 x 1.2 cm. Suspect a 1.4 cm right hilar lymph node, new. Esophagus: No wall thickening. No hiatal hernia. ABDOMEN: Liver: Unremarkable. Gallbladder: Unremarkable. Biliary ducts: Unremarkable. Pancreas: Unremarkable. Spleen: Unremarkable. Adrenal Glands: Unremarkable. Kidneys and Ureters: Unremarkable. Stomach and Bowel: There may be gastric wall thickening Small bowel loops, and colon are normal in caliber. There is diffuse colonic wall thickening involving the cecum, ascending colon, hepatic flexure and transverse colon consistent with colitis. There is a large amount of stool in colon. Peritoneum: No abnormal intraperitoneal fluid. No free air. Ventral Wall: No hernia. Abdominal Nodes: There is a 2.1 x 31.1 cm mesenteric mass left of the abdomen, new since the last exam. Vessels: Aorta and inferior vena cava are normal in size. Moderate atherosclerotic calcifications. PELVIS: Pelvic Organs: Unremarkable. Bladder: Unremarkable. Pelvic Nodes: No enlarged lymph nodes. Miscellaneous: No inguinal hernias are seen. Bones: Unremarkable. IMPRESSION: 1. New right supraclavicular lymphadenopathy. 2. Mixed interval change in mediastinal lymphadenopathy. 3. Suspect new right hilar lymphadenopathy. 4. A mass in the mesentery, new since the last exam, compatible with metastasis. The mesenteric mass is not amenable for imaging guided percutaneous biopsy. 5. Gastric wall appears thickened, which could be secondary to gastritis. No discrete gastric mass. Recommend clinical correlation. 6. There is diffuse colonic wall thickening involving the cecum, ascending colon, hepatic flexure and transverse colon consistent with colitis. Dictated by: Vishnu Perla M.D. on 09/25/2021 at 14:08 Approved by: Vishnu Perla M.D. on 09/25/2021 at 17:49
== END ==
PROVIDERS: PCP Family Medicine; Referring Provider Internal Medicine Hematology & Oncology; Visit Provider Internal Medicine Hematology & Oncology
DX: C34.90 Malignant neoplasm of unspecified part of unspecified bronchus or lung (principal); R59.1 Generalized enlarged lymph nodes
CPT/HCPCS: 71260; 74177

== ENCOUNTER → 2022-01-06 | Outpatient (CLI) | payer OTHER, BC, SELFPAY ==
--- NOTE | 2022-01-06 10:32 | DI.CT.S_ITS ---
PROCEDURE: CT HEAD/BRAIN WO/W CON INDICATIONS: recurrent small cell lung cancer TECHNIQUE: 4.5 mm thick angled axial sections acquired from the foramen magnum to the vertex both before and after the administration of intravenous contrast, with coronal and sagittal reformats. For radiation dose reduction, the following was used: automated exposure control, adjustment of mA and/or kV according to patient size. COMPARISON: [facility], CT, CT HEAD/BRAIN WO/W CON, 08/23/2021, 15:04. [facility], CT, CT SOFT TISSUE NECK W CON, 01/06/2022, 12:36. [facility], CT, CT HEAD WITH CONTRAST, 05/08/2021, 15:14. [facility], CT, CT HEAD/BRAIN WO/W CON, 02/26/2021, 11:55. FINDINGS: Image quality: There is artifact associated with the metallic hardware. CSF spaces: Basal cisterns are patent. No extra-axial fluid collections. Ventricles are symmetric in size and shape. Brain: On the prior study, there were several enhancing brain masses. These are each clearly improved compared to the prior examination. For example, within the left frontal lobe superiorly, there is a 3 mm focus of enhancement seen, as on series 6, image 23, which previously measured up to 1 cm. Within the right occipital region, there is a minimal 2 mm focus seen, as on series 6, image 21, which previously measured 12 mm. A tiny 2 mm focus is seen within the left middle cranial fossa, as on series 6, image 9, which previously measured up to 16 mm. Within the lateral aspect of the right cerebellum, there is an area of cystic encephalomalacia, without enhancement. No midline shift. No intracranial bleeds. There is cerebral volume loss for age. There is periventricular white matter chronic small vessel ischemic change. There is intracranial internal carotid artery atherosclerosis. Vascular coiling is again seen just to the right of the midline involving the basilar tip. There is a left V4 segment stent also seen. Skull and face: Calvarium and visualized facial bones appear intact, without suspicious lesions. Sinuses: Visualized sinuses and mastoids are clear. IMPRESSION: Near complete resolution of the previously seen a numerous areas of abnormal enhancement. Postoperative change with coiling and a vascular stent. Dictated by: Varghese Rosenthal M.D. on 01/06/2022 at 13:08 Approved by: Varghese Rosenthal M.D. on 01/06/2022 at 13:22
--- NOTE | 2022-01-06 10:32 | DI.CT.S_ITS ---
PROCEDURE: CT SOFT TISSUE NECK W CON INDICATIONS: recurrent small cell lung cancer TECHNIQUE: After the administration of intravenous contrast, 3.0 mm axial sections acquired from the sella to the aortic arch. Additional oblique axial 3.0 mm sections acquired through the pharynx. 3 mm thick coronal and sagittal reformats were generated. For radiation dose reduction, the following was used: automated exposure control. COMPARISON: [facility], [place], [place] PET CT FUSION SKULL 2 THIGH, 09/18/2021, 8:07. [facility], CT, CT SOFT TISSUE NECK W CON, 11/28/2020, 13:41. [facility], CT, CT CHEST ABD PEL W CON, 01/06/2022, 12:36. [facility], CT, CT HEAD/BRAIN WO/W CON, 01/06/2022, 12:36. FINDINGS: Image quality: Excellent. Lymph nodes: On the right level 1, there is a borderline enlarged lymph node measuring 9 by 6 mm, as on series 2, image 19, which appears improved compared to the prior PET-CT. On the right at level 2B, there is enlarged lymph node seen measuring 2.3 x 1.6 cm, as on series 2, image 38, which is similar to the prior PET-CT. Within the right inferior neck at level 5, there is a prominent enlarged hypervascular lymph node seen measuring 3.3 x 3.6 cm, as on series 2, image 42. This has increased in size compared to the prior PET-CT dated 09/18/2021. Enlarged mediastinal lymph nodes are partially seen, including an anterior superior mediastinal lymph node measuring 2.4 x 1.3 cm, as on series 2, image 65 and a 2.4 by 1.8 cm lesion seen involving the superior right mediastinum, as on series 2, image 72. Overall, these lymph nodes appear slightly enlarged compared to the prior PET-CT. Vessels: Visualized vasculature appears patent. 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 There is a left V4 segment stent seen. Neck spaces: The oropharynx, nasopharynx, and pharynx demonstrate no mucosal lesions. The vocal cords, false vocal cords, pyriform sinuses, epiglottis, vallecula, and tongue base all appear normal. Extramucosal spaces appear unremarkable. Glands: The parotid and submandibular glands appear normal. Thyroid gland demonstrates no significant abnormality. Miscellaneous: Visualized brain and orbits appear normal. Emphysematous changes can be seen at the lung apices. Superficial soft tissues appear normal. Mammoplasty implants are incidentally noted. A right-sided chest port is partially seen. Bones: No suspicious bony lesions. Visualized sinuses and mastoids appear unremarkable. IMPRESSION: Abnormal enlarged lymph nodes can be seen involving the right neck and the superior mediastinum, with a mixed response, yet with overall mild worsening compared to the prior PET CT. Additional findings: Right-sided chest port Emphysematous changes Mammoplasty implants Dictated by: Varghese Rosenthal M.D. on 01/06/2022 at 13:33 Approved by: Varghese Rosenthal M.D. on 01/06/2022 at 13:43
--- NOTE | 2022-01-06 10:32 | DI.CT.S_ITS ---
PROCEDURE: CT CHEST ABD PEL W CON INDICATIONS: recurrent small cell lung cancer TECHNIQUE: After the administration of oral and intravenous contrast, axial sections acquired from the supraclavicular neck to the pubic symphysis. Coronal and sagittal reformats were performed. For radiation dose reduction, the following was used: automated exposure control, adjustment of mA and/or kV according to patient size. COMPARISON: [facility], CT, CT CHEST ABD PEL W CON, 09/25/2021, 11:28. FINDINGS: Image quality: Excellent. CHEST: Lower Neck: Right supraclavicular mass measuring 3.5 cm, (2/5), previously 2.8. Thyroid: Within normal limits. Axillae: No enlarged lymph nodes. Chest Wall: Bilateral breast implants. Right-sided port with the catheter tip at the cavoatrial junction. Lungs and Airways: Moderate emphysematous change. Upper lobe interlobular septal thickening no pulmonary mass or significant pulmonary nodules secretions in the lower trachea. Pleura: No pneumothorax or pleural effusions. Heart: Heart size is within normal limits. LAD coronary artery calcifications. Trace pericardial fluid. Thoracic Vessels: The aorta and pulmonary arteries demonstrate normal size. Mediastinum and Jovanna: -Right upper mediastinal node measuring 1.8 cm, (2/22), previously 1.1 cm. -Subcarinal node measuring 2.9 cm, (2/30), previously 2.4 cm. -Right hilar node measuring 1.5 cm, (2/29), previously 1.2 cm. Esophagus: No wall thickening. No hiatal hernia. ABDOMEN: Liver: No focal lesion. Prominent size. Gallbladder: Unremarkable. Biliary ducts: Unremarkable. Pancreas: Unremarkable. Spleen: Unremarkable. Adrenal Glands: Unremarkable. Kidneys and Ureters: No hydronephrosis. Stomach and Bowel: Stomach, small bowel loops, and colon are unremarkable. Normal appendix. Peritoneum: No abnormal intraperitoneal fluid. No free air. Ventral Wall: No hernia. Abdominal Nodes: Left mesenteric mass measuring 1.7 cm, (2/70), previously 3.5 cm. No retroperitoneal adenopathy. Vessels: Aorta and inferior vena cava are normal in size. Extensive plaque. PELVIS: Pelvic Organs: Uterus is absent. No free fluid. Bladder: Unremarkable. Pelvic Nodes: No enlarged lymph nodes. Miscellaneous: Suspect small fat containing right inguinal hernia. Bones: No suspicious lesion. IMPRESSION: 1. Enlarging right supraclavicular, mediastinal, and right hilar nodes. 2. Left mesenteric mass is decreased in size. No ascites. Dictated by: Tom Castaneda M.D. on 01/06/2022 at 14:23 Approved by: Tom Castaneda M.D. on 01/06/2022 at 14:37
== END ==
PROVIDERS: PCP Family Medicine; Referring Provider Internal Medicine Hematology & Oncology; Visit Provider Internal Medicine Hematology & Oncology
DX: C50.912 Malignant neoplasm of unspecified site of left female breast (principal); C78.01 Secondary malignant neoplasm of right lung; C77.8 Secondary and unspecified malignant neoplasm of lymph nodes of multiple regions; C79.31 Secondary malignant neoplasm of brain; G93.89 Other specified disorders of brain; I65.29 Occlusion and stenosis of unspecified carotid artery; R19.00 Intra-abdominal and pelvic swelling, mass and lump, unspecified site
CPT/HCPCS: 70470; 70491; 71260; 74177; Q9967

== ENCOUNTER 2022-02-10 18:17 | Emergency (ER) | payer OTHER, SELFPAY ==
[2022-02-10 19:34] VITALS: BP 122/75; PULSE 103; RESP 20; TEMP 36.8; O2SAT 97; BMI 20.1
--- NOTE | 2022-02-10 20:22 | ED.EXTPRO ---
HPI - Extremity Problem General Chief complaint: Extremity Problem,Nontraumatic Stated complaint: Swelling rt arm,aching, disoriented Time Seen by Provider: 02/10/22 20:22 Source: patient and family Mode of arrival: Wheelchair Limitations: no limitations History of Present Illness HPI Narrative: This is a 61-year-old female with known metastatic breast cancer with prior Mets to the brain, epilepsy, hypothyroidism, aneurysm a posterior inferior cerebral artery, dyslipidemia hypertension who presents with some increased pain she describes as all over but particularly right shoulder and arm with increased swelling of the right arm, she describes pain in her chest as well as headache. Patient states she is been taking oxycodone she had 1 tablet today, she does not take it regularly just as needed and will take 1 or 2 tablets at the most. Patient does not think she is had any new medication changes. She does not think that she is currently on dexamethasone although her and her daughter unsure. Patient follows with Dr. Mcmanus for her oncology care. She denies fevers or chills. Her daughter states she is been a little bit more disoriented, she had more of a shuffling gait this weekend but daughter states she is walking better today. No lateralizing weakness appreciated. She does not feel short of breath, she denies nausea or vomiting. Constipation but having regular flatus. She denies any black or bloody stools. Denies abdominal pain. Patient states the swelling in her right arm is a little bit better. She does have a port on the right side, she has not noticed any skin changes or signs of infection. Related Data Home Medications Medication Instructions Recorded Confirmed cholecalciferol (vitamin D3) 125 125 mcg PO DAILY 09/20/20 01/20/22 mcg (5,000 unit) capsule garlic 1,000 mg capsule 1,000 mg PO QPC 09/20/20 01/20/22 mecobalamin (vitamin B12) 1,000 1,000 mcg PO DAILY 09/20/20 01/20/22 mcg chewable tablet omega-3 fatty acids 1,000 mg 1,000 mg PO DAILY 09/20/20 01/20/22 capsule turmeric root extract 500 mg 500 mg PO DAILY 09/20/20 01/20/22 capsule flaxseed oil 10 ml miscellaneous BID 02/21/21 01/20/22 amlodipine 2.5 mg tablet 2.5 mg PO DAILY High BP 01/08/22 01/20/22 Previous Rx's Medication Instructions Recorded lisinopril 40 mg tablet 40 mg PO DAILY #90 tabs 09/20/20 lidocaine-prilocaine 2.5 %-2.5 % 1 applic topical PRN PRN pain #30 06/24/21 topical cream grams levothyroxine 75 mcg tablet 75 mcg PO DAILY Hypothyroidism #90 09/12/21 tabs oxycodone-acetaminophen 7.5 mg-325 1 tab PO Q6H PRN cancer related 09/19/21 mg tablet pain #120 tabs olanzapine 10 mg disintegrating 10 mg PO BEDTIME #14 tabs 12/11/21 tablet levofloxacin 500 mg tablet 500 mg PO DAILY #7 tabs 12/16/21 levetiracetam 1,000 mg tablet for 1,000 mg PO BID #180 tabs 12/24/21 oral suspension anastrozole 1 mg tablet 1 mg PO DAILY breast cancer #90 01/20/22 tabs apixaban 5 mg tablet (Eliquis) 5 mg PO BID small cell lung cancer 02/06/22 #60 tabs oxycodone-acetaminophen 7.5 mg-325 1 - 2 tab PO Q4H PRN pain #180 tabs 02/06/22 mg tablet dexamethasone 4 mg tablet 4 mg PO BID #20 tabs 02/11/22 Allergies Allergy/AdvReac Type Severity Reaction Status Date / Time No Known Drug Allergies Allergy Verified 12/31/20 08:37 Review of Systems Review of Systems ROS Unobtainable: All systems reviewed & are unremarkable except as noted in HPI and below Patient History Medical History Aneurysm of posterior inferior cerebellar artery Breast cancer, stage 2 HLD (hyperlipidemia) Hyperparathyroidism Hypertension Hypothyroidism Measles Nonintractable epilepsy with complex partial seizures Osteopenia Seizures Small cell carcinoma Surgical History History of bilateral mastectomy (04/04/16) Hx of lymph node biopsy (11/05/20) Status post PICC central line placement Family History Father Cancer Social History household members: children and none Smoking Status: Former smoker alcohol intake: former substance use type: former substance user Smoking Status: Former smoker alcohol intake frequency: holidays/special occasions only Substance Use Type: marijuana Exam Narrative Exam Narrative: GEN: well nourished, well appearing female, alert and oriented x 3, patient appears to be in mild distress. Patient able to answer majority of questions appropriately. HEENT: Atraumatic, pupils are equal round reactive to light, extraocular movements are intact, slight proptosis bilaterally nares are clear, TMs are clear with no fluid, there is no conjunctival pallor. Throat is clear without any exudates, erythema, tonsillar enlargement or uvular deviation HEART: Regular rate and rhythm without murmur, clicks, rubs. pulses are equal in upper and lower extremities LUNGS:Lungs clear to auscultation, no wheezes, rales, crackles, chest moves symmetrically, no tachypnea accessory muscle use. Port on the right side of the chest is currently in use, no warmth erythema drainage or signs of infection nontender around the site. ABD:bowel sounds normal, soft, non-tender, no guarding, rebound, rigidity, no masses noted, no hepatosplenomegaly :No CVA tenderness MSCL: Non-tender to bony palpation, patient has full range of motion. She has slight swelling of the right compared to left upper extremity. 2+ pulses bilaterally. No muscle atrophy, muscles strength 5/5 upper and lower extremities, full range of motion NEURO:CN 2-12 intact, sensation normal SKIN: Rash, erythema or other skin changes. Initial Vital Signs Initial Vital Signs: Vital Signs Temperature 98.2 F 02/10/22 19:34 Pulse Rate 103 H 02/10/22 19:34 Respiratory Rate 20 02/10/22 19:34 Blood Pressure 122/75 02/10/22 19:34 Pulse Oximetry 97 02/10/22 19:34 Oxygen Delivery Method 02/10/22 19:34 Course Orders Ordered: Discontinued Medications Dexamethasone (Dexamethasone 10 Mg/Ml Vial) 10 mg IV NOW ONE Stop: 02/10/22 22:29 Last Admin: 02/10/22 22:52 Dose: 10 mg Documented By: DAQUAN Heparin Sodium (Porcine) (Heparin 500 Unit/5 Ml Port Flush) 500 unit IV PRN PRN PRN Reason: Flush Last Admin: 02/11/22 02:36 Dose: 500 unit Documented By: OMAR Sodium Chloride (Normal Saline 0.9%) 1,000 mls @ 1,000 mls/hr IV BOLUS ONE Stop: 02/10/22 23:19 Last Infusion: 02/11/22 02:39 Dose: 0 mls/hr Documented By: Admin: 02/10/22 22:52 Dose: 1,000 mls/hr Documented By: DAQUAN Morphine Sulfate (Morphine 4 Mg/Ml Inj) 4 mg IV NOW ONE Stop: 02/10/22 21:33 Last Admin: 02/10/22 22:52 Dose: 4 mg Documented By: DAQUAN Ondansetron HCl (Ondansetron 4 Mg/2 Ml Inj) 4 mg IV Q6HR PRN PRN Reason: Nausea And Vomiting Reevaluation(s) Reevaluation #1: Patient and I reviewed findings, discussed admission vs observation. Patient prefers to return home. Discussed will talk with her oncology team for recommendations and go from there. Patient states she is an appointment on February 17 Time: 01:59 Reevaluation #2: Spoke with patient regarding recommendations from Oncology. She feels very comfortable with this plan. Also discussed with her daughter at bedside and all of the findings today. Return precautions. Patient states she does not need a refill of pain medications she will continue the steroids. Time: 02:24 Consultations Consultation #1: poke with Dr. Fry, oncology.? Unclear if patient would be a candidate for radiation he is unsure if she had whole-brain or not he does not have return front of her but states it is unlikely that she would be a candidate this point.? Patient would like to return home, he does agree with plan to restart dexamethasone and recommends 4 mg b.i.d..? They are happy to see her this week. Time: 02:15 Vital Signs Vital signs: Vital Signs - 8 hr 02/10/22 22:58 Pulse Rate 80 Respiratory Rate 18 Blood Pressure 144/111 H Pulse Oximetry 99 Oxygen Delivery Method Room Air MDM - Extremity (Nontraumatic) Lab Data Result diagrams: 02/10/22 20:54 02/10/22 20:54 Labs: Lab Results 02/10/22 02/10/22 02/10/22 Range/Units 20:54 20:54 20:54 WBC 6.3 (4.5-11.0) X10^3/uL RBC 2.71 L (4.0-5.2) X10^6/uL Hgb 9.0 L (12.0-16.0) g/dL Hct 25.6 L (36-46) % MCV 94.7 (80-100) fL MCH 33.2 (26-34) PG MCHC 35.1 (30-36) % RDW 20.0 H (11.6-14.8) % Plt Count 180 (150-400) X10^3/uL Neut % (Auto) 73.5 (50-75) % Lymph % (Auto) 14.7 L (25-40) % Jewell % (Auto) 10.6 (3-14) % Eos % (Auto) 0.6 L (2-4) % Baso % (Auto) 0.6 (0-2) % Neut # (Auto) 4600 (2398-1103) /uL Lymph # (Auto) 900 L (1286-8798) /uL Jewell # (Auto) 700 (0-900) /uL Eos # (Auto) 0 (0-450) /uL Baso # (Auto) 0 (0-100) /uL PT 12.9 H (10.1-12.7) SECONDS INR 1.1 (0.9-1.3) APTT 40 H (26-36) SECONDS Sodium 124 L (137-145) mmol/L Potassium 3.5 (3.4-5.1) mmol/L Chloride 88 L (98-107) mmol/L Carbon Dioxide 27 (22-32) mmol/L BUN 12 (7-17) mg/dL Creatinine 0.99 (0.52-1.04) mg/dL Estimated GFR > 60 (>60) mL/min BUN/Creatinine Ratio 12.1 (6-22) Glucose 103 (80-110) mg/dL Lactate (0.7-2.1) mmol/L Calcium 9.4 (8.4-10.2) mg/dL Total Bilirubin 0.4 (0.2-1.3) mg/dL AST 150 H (14-36) IU/L ALT 47 H (<35) IU/L Alkaline Phosphatase 69 (38-126) U/L Total Creatine Kinase 4210 H (30-135) U/L CK-MB (CK-2) 4.40 H (<2.37) ng/mL CK-MB (CK-2) Rel Index 0.1 L (1.5-5.0) % Troponin I < 0.012 (0.01-0.034) ng/mL NT-Pro-B Natriuret Pep 153 H (<125) pg/mL Total Protein 7.2 (6.3-8.2) g/dL Albumin 4.0 (3.5-5.0) g/dL Globulin 3.2 (1.7-4.1) g/dL Albumin/Globulin Ratio 1.3 (1.0-2.8) Lipase 428 H (23-300) U/L 02/10/22 Range/Units 20:54 WBC (4.5-11.0) X10^3/uL RBC (4.0-5.2) X10^6/uL Hgb (12.0-16.0) g/dL Hct (36-46) % MCV (80-100) fL MCH (26-34) PG MCHC (30-36) % RDW (11.6-14.8) % Plt Count (150-400) X10^3/uL Neut % (Auto) (50-75) % Lymph % (Auto) (25-40) % Jewell % (Auto) (3-14) % Eos % (Auto) (2-4) % Baso % (Auto) (0-2) % Neut # (Auto) (5563-0178) /uL Lymph # (Auto) (0434-0959) /uL Jewell # (Auto) (0-900) /uL Eos # (Auto) (0-450) /uL Baso # (Auto) (0-100) /uL PT (10.1-12.7) SECONDS INR (0.9-1.3) APTT (26-36) SECONDS Sodium (137-145) mmol/L Potassium (3.4-5.1) mmol/L Chloride (98-107) mmol/L Carbon Dioxide (22-32) mmol/L BUN (7-17) mg/dL Creatinine (0.52-1.04) mg/dL Estimated GFR (>60) mL/min BUN/Creatinine Ratio (6-22) Glucose (80-110) mg/dL Lactate 1.1 (0.7-2.1) mmol/L Calcium (8.4-10.2) mg/dL Total Bilirubin (0.2-1.3) mg/dL AST (14-36) IU/L ALT (<35) IU/L Alkaline Phosphatase (38-126) U/L Total Creatine Kinase (30-135) U/L CK-MB (CK-2) (<2.37) ng/mL CK-MB (CK-2) Rel Index (1.5-5.0) % Troponin I (0.01-0.034) ng/mL NT-Pro-B Natriuret Pep (<125) pg/mL Total Protein (6.3-8.2) g/dL Albumin (3.5-5.0) g/dL Globulin (1.7-4.1) g/dL Albumin/Globulin Ratio (1.0-2.8) Lipase (23-300) U/L Imaging Data CT scan - chest: Radiologist's Impression: Close Peripheral Vascular Ultrasound 02/10/[address] (Signed) Raymond Sanders - 02/10/22 Chest CTA (Signed) Raymond Sanders - 02/10/[address] (Signed) Varghese Rosenthal - 01/06/[address] (Signed) Varghese Rosenthal - 01/06/22 Chest/Abdomen/Pelvis CT (Signed) Tom Castaneda - 01/06/22 Chest/Abdomen/Pelvis CT (Signed) Vishnu Perla - 09/25/21 PET, Tumor Imaging Skull-Mid Thigh (Signed) Vishnu Perla - 09/18/[address] (Signed) Varghese Rosenthal - 08/23/21 PET, Tumor Imaging Skull-Mid Thigh (Signed) Mumtaz Perla - 05/15/21 Outside DI 05/08/21 Outside DI 05/08/21 Chest/Abdomen/Pelvis CT (Signed) Melinda Guerrero - 02/26/[address] (Signed) Varghese Rosenthal - 02/26/21 Chest X-Ray (Signed) Cortez Espinoza - 12/31/20 Telemetry Strips 12/31/20 Chest X-Ray (Signed) Edgar Ravi - 12/31/20 PICC Line Insertion (Signed) Toñito Del Castillo - 12/12/[address] (Signed) Jaquan Melros - 11/28/[address] (Signed) Jaquan Merlos - 11/28/20 Telemetry Strips 11/14/20 Chest X-Ray (Signed) Toñito Del Castillo - 11/14/20 Outside DI 11/08/20 Outside DI 10/31/20 Chest/Abdomen/Pelvis CT (Signed) MindaIvetchris - 10/23/[address] (Signed) Mohinder Allan - 10/23/[address] (Signed) Varghese Rosenthal - 10/23/20 Chest X-Ray (Signed) Ginger Ellison - 10/23/20 Head/Neck Ultrasound (Signed) Robert Mcmanus - 09/27/20 Shoulder X-Ray (Signed) Cortez Espinoza - 09/20/20 Launch?[place] [address] CT Scan Report Signed Patient: Brando Elliott MR#: [id number] : 1960 Acct:[id number] Age/Sex: 61 / F Date of Service: 02/10/22 Loc: Accession Number: [id number] ?? Procedure: CT angio chest PE protocol Ordering Provider: Gloria Pollack D.O. PROCEDURE:? CT ANGIO CHEST PE PROTOCOL ? INDICATIONS:? metastatic cancer, arm swelling, confused. ? TECHNIQUE:? After the administration of intravenous contrast, 2 mm thick sections acquired from the pulmonary apices to the posterior costophrenic angles.? 3-dimensional maximum intensity projection (MIP) coronal and sagittal reformats were then acquired through the thorax.? For radiation dose reduction, the following was used:? automated exposure control, adjustment of mA and/or kV according to patient size.? ? COMPARISON:? [facility], CT, CT CHEST ABD PEL W CON, 01/06/2022, 12:36. ? FINDINGS:? Image quality:? Excellent.? ? Pulmonary arteries:? Pulmonary arteries are normal in size, and demonstrate no intraluminal filling defects to suggest central pulmonary embolism.? ? Lower Neck:? There is interval increase in size of a confluent right supraclavicular jayleen mass which measures up to approximately 6.0 x 4.9 cm in transverse dimension on series 6, image 3 compared to approximately 3.8 x 3.2 cm in dimension at a comparable level on the prior study.? A few scattered subcentimeter right subpectoral and axillary lymph nodes are also noted. Thyroid:? Visualized thyroid demonstrates no discrete nodules. Axillae: No lymphadenopathy by size criteria. Chest Wall:? There is a right internal jugular Port-A-Cath with the tip extending to the right atrium.? There are bilateral breast implants which appear intact? Bones: Visualized osseous structures demonstrate no suspicious lesions. ? Lungs and Airways:? There are moderate centrilobular emphysematous changes bilaterally.? Medial septal thickening is demonstrated in the right lung along the mediastinum likely representing radiation pneumonitis.? There is chronic scarring and atelectasis demonstrated medially within the right middle lobe, similar to the prior study.? Within the left upper lobe, there are anterior subpleural reticular opacities also redemonstrated compatible with radiation pneumonitis.? Mild dependent atelectasis is demonstrated bilaterally.There is dependent mucus within the distal trachea extending into the mainstem bronchi.? Pleura: No pneumothorax or pleural effusions.? ? Heart: Heart size is enlarged.? No pericardial effusion. Thoracic Vessels: The thoracic aorta is normal in size.? Mediastinum and Jovanna:? There is interval increase in size of multiple enlarged heterogeneous enhancing mediastinal and right hilar lymph nodes.? These include a confluent subcarinal jayleen mass measuring up to 5.3 x 4.1 cm in transverse dimension compared to 4.1 x 2.9 cm on the prior study.? A sales representative jewelry mediastinal node adjacent to the RA arch 9 measures up to 2.9 cm in short axis on series 6, image 45 compared to 1.8 cm on the prior study.? The mediastinal nodes demonstrate encasement of the right mainstem bronchus as well as bronchial structures in the right hilum. Esophagus: No wall thickening. No hiatal hernia. ? Abdomen:? Visualized upper abdomen demonstrates increase in size of mesenteric lymph nodes there is a sales representative jewelry node to the right of the superior mesenteric artery measuring up to 1.4 cm in short axis on series 6, image 140. ? IMPRESSION:? ? 1. No evidence of pulmonary embolism. ? 2. Increase in size of a large confluent right supraclavicular jayleen mass consistent with progression of metastatic disease.? There is suspected mass effect on the adjacent vessels, with the adjacent veins not well evaluated on the current study due to the phase of imaging. ? 3. Increase in size of mediastinal and right hilar lymphadenopathy also consistent with progression of metastatic disease. ? 4. Increased in size of mesenteric lymph nodes in the upper abdomen also likely representing metastatic disease. ? 5. Dependent mucus within the trachea and mainstem bronchi suggesting sequelae of aspiration. ? 6. Bilateral post radiation changes demonstrated.? ? Dictated by: Raymond Sanders M.D. on 02/10/2022 at 22:33 ? ? Approved by: Raymond Sanders M.D. on 02/10/2022 at 22:49?? CT scan - head: Radiologist's Impression: Close Peripheral Vascular Ultrasound 02/10/[address] (Signed) Raymond Sanders - 02/10/22 Chest CTA (Signed) Raymond Sanders - 02/10/[address] (Signed) Varghese Rosenthal - 01/06/[address] (Signed) Varghese Rosenthal - 01/06/22 Chest/Abdomen/Pelvis CT (Signed) Tom Castaneda - 01/06/22 Chest/Abdomen/Pelvis CT (Signed) Vishnu Perla - 09/25/21 PET, Tumor Imaging Skull-Mid Thigh (Signed) Vishnu Perla - 09/18/[address] (Signed) Varghese Rosenthal - 08/23/21 PET, Tumor Imaging Skull-Mid Thigh (Signed) Mumtaz Perla - 05/15/21 Outside DI 05/08/21 Outside DI 05/08/21 Chest/Abdomen/Pelvis CT (Signed) Melinda Guerrero - 02/26/[address] (Signed) Varghese Rosenthal - 02/26/21 Chest X-Ray (Signed) Cortez Espinoza - 12/31/20 Telemetry Strips 12/31/20 Chest X-Ray (Signed) Edgar Ravi - 12/31/20 PICC Line Insertion (Signed) Toñito Del Castillo - 12/12/[address] (Signed) Jaquan Merlos - 11/28/[address] (Signed) GaurangJaquan - 11/28/20 Telemetry Strips 11/14/20 Chest X-Ray (Signed) Toñito Del Castillo - 11/14/20 Outside DI 11/08/20 Outside DI 10/31/20 Chest/Abdomen/Pelvis CT (Signed) MindaIvet mcdanielchris - 10/23/[address] (Signed) Mohinder Allan - 10/23/[address] (Signed) Varghese Rosenthal - 10/23/20 Chest X-Ray (Signed) Ginger Ellison - 10/23/20 Head/Neck Ultrasound (Signed) Robert Mcmanus - 09/27/20 Shoulder X-Ray (Signed) Cortez Espinoza - 09/20/20 Launch?Image [address] [address] [address] Scan Report Signed Patient: Brando Elliott MR#: [id number] : 1960 Acct:[id number] Age/Sex: 61 / F Date of Service: 02/10/22 Loc: ED Accession Number: [id number] ?? Procedure: CT head/brain wo con Ordering Provider: Gloria Pollack D.O. PROCEDURE:? CT HEAD/BRAIN WO CON ? INDICATIONS:? metastatic cancer, arm swelling, confused. ? TECHNIQUE:? Noncontrast 4.5 mm thick angled axial sections acquired from the foramen magnum to the vertex, with coronal and sagittal reformats.? For radiation dose reduction, the following was used:? automated exposure control, adjustment of mA and/or kV according to patient size.? ? COMPARISON:? [facility], CT, CT HEAD/BRAIN WO/W CON, 01/06/2022, 12:36.? [facility], CT, CT HEAD/BRAIN WO CON, 10/23/2020, 12:44. ? FINDINGS:? Image quality:? There is streak artifact secondary to patient's aneurysm coils limiting evaluation.? ? CSF spaces:? Basal cisterns are patent.? No extra-axial fluid collections.? The ventricles are symmetric in size and shape.? There is cerebral volume loss, with resultant ventricular and sulcal prominence.? ? Brain:? No intracranial hemorrhage or midline shift.? There is interval increase in size of a hypoattenuating mass lesion within the left thalamus now measuring up to 1.4 x 1.3 cm on series 3, image 14 compared to approximately 0.7 x 0.6 cm previously.? There is volume loss within the left cerebellar hemisphere laterally with a suspected mass lesion which is not well evaluated on the current study.? There are subcortical, periventricular and deep white matter hypodensities which are nonspecific and may reflect chronic small vessel ischemic changes, posttreatment changes, or vasogenic edema.? The santiago-white matter junction appears grossly preserved.? Aneurysm coils redemonstrated in the region of the basilar tip.? There is also an adjacent vascular stent again noted. ? Skull and face:? Calvarium and visualized facial bones are intact, without suspicious lesions.? ? Sinuses:? Visualized sinuses and mastoids are clear.? ? IMPRESSION:? ? 1. No intracranial hemorrhage or midline shift. ? 2. Increase in size of a left thalamic mass suggesting progression of metastatic disease. ?There is also suspected increase in size of a left cerebellar mass which is not well evaluated on the current study.? Recommend follow-up evaluation with a contrast enhanced MRI or CT when clinically feasible. ? 3. Increased periventricular and subcortical white matter hypodensities consistent with posttreatment changes, chronic white matter small vessel ischemic changes, or vasogenic edema.? ? ? Dictated by: Raymond Sanders M.D. on 02/10/2022 at 22:11 ? ? Approved by: Raymond Sanders M.D. on 02/10/2022 at 22:18?? US - DVT: Radiologist's Impression: Close Peripheral Vascular Ultrasound (Signed) Raymond Sanders - 02/10/[address] (Signed) Raymond Sanders - 02/10/22 Chest CTA (Signed) Raymond Sanders - 02/10/[address] (Signed) Varghese Rosenthal - 01/06/[address] (Signed) Varghese Rosenthal - 01/06/22 Chest/Abdomen/Pelvis CT (Signed) Tom Castaneda - 01/06/22 Chest/Abdomen/Pelvis CT (Signed) Vishnu Perla - 09/25/21 PET, Tumor Imaging Skull-Mid Thigh (Signed) Vishnu Perla - 09/18/[address] (Signed) Varghese Rosenthal - 08/23/21 PET, Tumor Imaging Skull-Mid Thigh (Signed) MindaCeciliaaline - 05/15/21 Outside DI 05/08/21 Outside DI 05/08/21 Chest/Abdomen/Pelvis CT (Signed) Melinda Guerrero - 02/26/[address] (Signed) Varghese Rosenthal - 02/26/21 Chest X-Ray (Signed) Cortez Espinoza - 12/31/20 Telemetry Strips 12/31/20 Chest X-Ray (Signed) Edgar Ravi - 12/31/20 PICC Line Insertion (Signed) Toñito Del Castillo - 12/12/[address] (Signed) Merlos,Jaquan - 11/28/[address] (Signed) MerlosJaquan - 11/28/20 Telemetry Strips 11/14/20 Chest X-Ray (Signed) Toñito Del Castillo - 11/14/20 Outside DI 11/08/20 Outside DI 10/31/20 Chest/Abdomen/Pelvis CT (Signed) MindaCeciliaaline - 10/23/[address] (Signed) Mohinder Allan - 10/23/[address] (Signed) Varghese Rosenthal - 10/23/20 Chest X-Ray (Signed) Ginger Ellison - 10/23/20 Head/Neck Ultrasound (Signed) Robert Mcmanus - 09/27/20 Shoulder X-Ray (Signed) Cortez Espinoza - 09/20/20 Launch?[place] [address] Ultrasound Report Signed Patient: Brando Elliott MR#: [id number] : 1960 Acct:[id number] Age/Sex: 61 / F Date of Service: 02/10/22 Loc: ED Accession Number: [id number] ?? Procedure: US periph venous up extrem rt Ordering Provider: Gloria Pollack D.O. PROCEDURE:? US PERIPH VENOUS UP EXTREM RT ? INDICATIONS:? right arm swelling, metastatic ca ? TECHNIQUE:? Real-time imaging, as well as color and pulse Doppler interrogation, was performed of the right upper extremity deep veins from the inferior neck to the antecubital fossa.? ? COMPARISON:? [facility], CT, CT ANGIO CHEST PE PROTOCOL, 02/10/2022, 21:19. ? FINDINGS:? The internal jugular vein, visualized portions of the subclavian vein, axillary, and brachial veins are free of intraluminal thrombus.? Where physically possible, the veins are normally compressible.? Color and pulse Doppler demonstrate normal intraluminal flow, with expected phasicity and pulsatility.? Additional scanning of the cephalic and basilic veins of the superficial system demonstrate normal compressibility, without thrombus.? ? IMPRESSION:? ? 1. No evidence of deep venous thrombosis in the right upper extremity. ? ? Dictated by: Raymond Sanders M.D. on 02/10/2022 at 23:46 ? ? Approved by: Raymond Sanders M.D. on 02/10/2022 at 23:47?? [facility] Narrative Medical decision making narrative: This is a 61-year-old female with metastatic breast cancer appears to be at receiving palliative treatment form of chemotherapy and reported brain radiation in the past. She is had some increased confusion the last couple days her daughter states her gait was shuffling this weekend but is better today, and some swelling of her right arm no new weakness she is been using her extremities without issue and she describes pain she describes as generalized but a little bit more in the right shoulder. She is a large supraclavicular node on exam, she has no metastatic cancer and head CT was obtained her images from December had shown improvement in her metastases and they appeared to have recurred and are larger today, not a lot of midline shift but there is some vasogenic edema. She does have a sodium of 124 but this is less likely the main source of issue. Patient has increased enlargement of masses in her chest and supraclavicular node which is likely causing some compression to the vessel. She has flow normal pulses, she does not have a DVT on ultrasound. Patient does not appear to have SVC syndrome at this point. Her CK is elevated at 4000, suspect this is related to her cancer no renal failure, normal electrolytes. She is been urinating without issue. Reviewed patient's other labs. Discussed admission or possibly transfer if she is a candidate for radiation, patient is reluctant would like to return home. Talked with her oncology team she does have short-term follow-up on the , they do agree with plan start dexamethasone 4 mg b.i.d. she received an initial dose of 10 mg in the department. Discharge Plan Departure Patient Disposition: Home Clinical Impression: Acute hyponatremia, Brain metastases, Chest mass Activity Restrictions/Additional Instructions: I spoke with your oncology team, if you prefer to be discharged and not stay in the hospital they are happy to see you this week. You have had a recurrence of the metastatic lesions in your brain, this is likely causing some of her symptoms and the steroids may help. The lymph nodes in your chest have increased in size and there is a large 1 but your clavicle which is likely pushing on the vessel and causing some swelling. There are no blood clots in your arm today. You can increase your oxycodone to 1-2 tablets every 6 hours if needed. Make sure you take a stool softener with this medication. Please take dexamethasone 4mg twice daily until you see your oncologist. Prescription sent to [facility] in [place]. Please return with new or worsening symptoms, increasing confusion, new weakness, loss of sensation or difficulty with movement, severe headaches, increasing chest pain or shortness of breath. Prescriptions: New dexamethasone 4 mg tablet 4 mg PO BID Qty: 20 0RF No Action olanzapine 10 mg Tablet,Disintegrating 10 mg PO BEDTIME Qty: 14 3RF levetiracetam 1,000 mg Tablet For Suspension 1,000 mg PO BID Qty: 180 3RF amlodipine 2.5 mg tablet 2.5 mg PO DAILY omega-3 fatty acids 1,000 mg capsule 1,000 mg PO DAILY mecobalamin (vitamin B12) 1,000 mcg tablet,chewable 1,000 mcg PO DAILY cholecalciferol (vitamin D3) 125 mcg (5,000 unit) capsule 125 mcg PO DAILY turmeric root extract 500 mg capsule 500 mg PO DAILY garlic 1,000 mg capsule 1,000 mg PO QPC lisinopril 40 mg tablet 40 mg PO DAILY Qty: 90 3RF flaxseed oil Oil 10 ml MISCELLANEOUS BID lidocaine-prilocaine 2.5-2.5 % Cream 1 applic topical PRN PRN (Reason: pain) Qty: 30 0RF Rx Instructions: Apply to the skin over the port at least 2 hrs before planned use of the port. Cover the cream with a small piece of plastic wrap and leave in place until the port is accessed. levothyroxine 75 mcg Tablet 75 mcg PO DAILY Qty: 90 0RF Rx Instructions: Take one 75mcg tablet daily. Take on an empty stomach 30-45 minutes prior to eating. oxycodone-acetaminophen 7.5-325 mg Tablet 1 tab PO Q6H PRN (Reason: cancer related pain) Qty: 120 0RF levofloxacin 500 mg Tablet 500 mg PO DAILY Qty: 7 0RF anastrozole 1 mg tablet 1 mg PO DAILY Qty: 90 3RF Eliquis 5 mg Tablet 5 mg PO BID Qty: 60 11RF oxycodone-acetaminophen 7.5-325 mg Tablet 1 - 2 tab PO Q4H PRN (Reason: pain) Qty: 180 0RF Rx Instructions: Take 1-2 tabs every 4-6 hours as needed for pain Referrals: Sander Macdonald MD [Primary Care Provider] -
--- NOTE | 2022-02-10 20:23 | DI.US.S_ITS ---
PROCEDURE: US PERIPH VENOUS UP EXTREM RT INDICATIONS: right arm swelling, metastatic ca TECHNIQUE: Real-time imaging, as well as color and pulse Doppler interrogation, was performed of the right upper extremity deep veins from the inferior neck to the antecubital fossa. COMPARISON: [facility], CT, CT ANGIO CHEST PE PROTOCOL, 02/10/2022, 21:19. FINDINGS: The internal jugular vein, visualized portions of the subclavian vein, axillary, and brachial veins are free of intraluminal thrombus. Where physically possible, the veins are normally compressible. Color and pulse Doppler demonstrate normal intraluminal flow, with expected phasicity and pulsatility. Additional scanning of the cephalic and basilic veins of the superficial system demonstrate normal compressibility, without thrombus. IMPRESSION: 1. No evidence of deep venous thrombosis in the right upper extremity. Dictated by: Raymond Sanders M.D. on 02/10/2022 at 23:46 Approved by: Raymond Sanders M.D. on 02/10/2022 at 23:47
--- NOTE | 2022-02-10 20:23 | DI.CT.S_ITS ---
PROCEDURE: CT ANGIO CHEST PE PROTOCOL INDICATIONS: metastatic cancer, arm swelling, confused. TECHNIQUE: After the administration of intravenous contrast, 2 mm thick sections acquired from the pulmonary apices to the posterior costophrenic angles. 3-dimensional maximum intensity projection (MIP) coronal and sagittal reformats were then acquired through the thorax. For radiation dose reduction, the following was used: automated exposure control, adjustment of mA and/or kV according to patient size. COMPARISON: [facility], CT, CT CHEST ABD PEL W CON, 01/06/2022, 12:36. FINDINGS: Image quality: Excellent. Pulmonary arteries: Pulmonary arteries are normal in size, and demonstrate no intraluminal filling defects to suggest central pulmonary embolism. Lower Neck: There is interval increase in size of a confluent right supraclavicular jayleen mass which measures up to approximately 6.0 x 4.9 cm in transverse dimension on series 6, image 3 compared to approximately 3.8 x 3.2 cm in dimension at a comparable level on the prior study. A few scattered subcentimeter right subpectoral and axillary lymph nodes are also noted. Thyroid: Visualized thyroid demonstrates no discrete nodules. Axillae: No lymphadenopathy by size criteria. Chest Wall: There is a right internal jugular Port-A-Cath with the tip extending to the right atrium. There are bilateral breast implants which appear intact Bones: Visualized osseous structures demonstrate no suspicious lesions. Lungs and Airways: There are moderate centrilobular emphysematous changes bilaterally. Medial septal thickening is demonstrated in the right lung along the mediastinum likely representing radiation pneumonitis. There is chronic scarring and atelectasis demonstrated medially within the right middle lobe, similar to the prior study. Within the left upper lobe, there are anterior subpleural reticular opacities also redemonstrated compatible with radiation pneumonitis. Mild dependent atelectasis is demonstrated bilaterally.There is dependent mucus within the distal trachea extending into the mainstem bronchi. Pleura: No pneumothorax or pleural effusions. Heart: Heart size is enlarged. No pericardial effusion. Thoracic Vessels: The thoracic aorta is normal in size. Mediastinum and Jovanna: There is interval increase in size of multiple enlarged heterogeneous enhancing mediastinal and right hilar lymph nodes. These include a confluent subcarinal jayleen mass measuring up to 5.3 x 4.1 cm in transverse dimension compared to 4.1 x 2.9 cm on the prior study. A signs and displays sales representative mediastinal node adjacent to the RA arch 9 measures up to 2.9 cm in short axis on series 6, image 45 compared to 1.8 cm on the prior study. The mediastinal nodes demonstrate encasement of the right mainstem bronchus as well as bronchial structures in the right hilum. Esophagus: No wall thickening. No hiatal hernia. Abdomen: Visualized upper abdomen demonstrates increase in size of mesenteric lymph nodes there is a signs and displays sales representative node to the right of the superior mesenteric artery measuring up to 1.4 cm in short axis on series 6, image 140. IMPRESSION: 1. No evidence of pulmonary embolism. 2. Increase in size of a large confluent right supraclavicular jayleen mass consistent with progression of metastatic disease. There is suspected mass effect on the adjacent vessels, with the adjacent veins not well evaluated on the current study due to the phase of imaging. 3. Increase in size of mediastinal and right hilar lymphadenopathy also consistent with progression of metastatic disease. 4. Increased in size of mesenteric lymph nodes in the upper abdomen also likely representing metastatic disease. 5. Dependent mucus within the trachea and mainstem bronchi suggesting sequelae of aspiration. 6. Bilateral post radiation changes demonstrated. Dictated by: Raymond Sanders M.D. on 02/10/2022 at 22:33 Approved by: Raymond Sanders M.D. on 02/10/2022 at 22:49
--- NOTE | 2022-02-10 20:23 | DI.CT.S_ITS ---
PROCEDURE: CT HEAD/BRAIN WO CON INDICATIONS: metastatic cancer, arm swelling, confused. TECHNIQUE: Noncontrast 4.5 mm thick angled axial sections acquired from the foramen magnum to the vertex, with coronal and sagittal reformats. For radiation dose reduction, the following was used: automated exposure control, adjustment of mA and/or kV according to patient size. COMPARISON: [facility], CT, CT HEAD/BRAIN WO/W CON, 01/06/2022, 12:36. [facility], CT, CT HEAD/BRAIN WO CON, 10/23/2020, 12:44. FINDINGS: Image quality: There is streak artifact secondary to patient's aneurysm coils limiting evaluation. CSF spaces: Basal cisterns are patent. No extra-axial fluid collections. The ventricles are symmetric in size and shape. There is cerebral volume loss, with resultant ventricular and sulcal prominence. Brain: No intracranial hemorrhage or midline shift. There is interval increase in size of a hypoattenuating mass lesion within the left thalamus now measuring up to 1.4 x 1.3 cm on series 3, image 14 compared to approximately 0.7 x 0.6 cm previously. There is volume loss within the left cerebellar hemisphere laterally with a suspected mass lesion which is not well evaluated on the current study. There are subcortical, periventricular and deep white matter hypodensities which are nonspecific and may reflect chronic small vessel ischemic changes, posttreatment changes, or vasogenic edema. The santiago-white matter junction appears grossly preserved. 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 There is also an adjacent vascular stent again noted. Skull and face: Calvarium and visualized facial bones are intact, without suspicious lesions. Sinuses: Visualized sinuses and mastoids are clear. IMPRESSION: 1. No intracranial hemorrhage or midline shift. 2. Increase in size of a left thalamic mass suggesting progression of metastatic disease. There is also suspected increase in size of a left cerebellar mass which is not well evaluated on the current study. Recommend follow-up evaluation with a contrast enhanced MRI or CT when clinically feasible. 3. Increased periventricular and subcortical white matter hypodensities consistent with posttreatment changes, chronic white matter small vessel ischemic changes, or vasogenic edema. Dictated by: Raymond Sanders M.D. on 02/10/2022 at 22:11 Approved by: Raymond Sanders M.D. on 02/10/2022 at 22:18
[2022-02-10 21:09] LABS: Add Manual Diff / Slide Review NO; Basophils Absolute Auto 0 /uL (0-100); Basophils Percent Auto 0.6 % (0-2); Eosinophils Absolute Auto 0 /uL (0-450); Eosinophils Percent Auto 0.6 % (2-4); Hematocrit 25.6 % (36-46); Lymphocytes Absolute Auto 900 /uL (1100-4500); Lymphocytes Percent Auto 14.7 % (25-40); Mean Corpuscular HGB Conc 35.1 % (30-36); Mean Corpuscular Hemoglobin 33.2 PG (26-34); Mean Corpuscular Volume 94.7 fL (80-100); Monocytes Absolute Auto 700 /uL (0-900); Monocytes Percent Auto 10.6 % (3-14); Neutrophils Absolute Auto 4600 /uL (1500-7000); Neutrophils Percent Auto 73.5 % (50-75); Platelet Count 180 X10^3/uL (150-400); Red Blood Cell Count 2.71 X10^6/uL (4.0-5.2); White Blood Cell Count 6.3 X10^3/uL (4.5-11.0)
[2022-02-10 21:13] LABS: INR 1.1 (0.9-1.3); Prothrombin Time 12.9 SECONDS (10.1-12.7)
[2022-02-10 21:16] LABS: PTT Partial Thromboplastin Tim 40 SECONDS (26-36)
[2022-02-10 21:19] LABS: Alanine Aminotransferase 47 IU/L (<35); Albumin Globulin Ratio 1.3 (1.0-2.8); Alkaline Phosphatase 69 U/L (38-126); Aspartate Aminotransferase 150 IU/L (14-36); BUN Creatinine Ratio 12.1 (6-22); Bilirubin Total 0.4 mg/dL (0.2-1.3); Blood Urea Nitrogen 12 mg/dL (7-17); Calcium 9.4 mg/dL (8.4-10.2); Carbon Dioxide 27 mmol/L (22-32); Estimated Glomerular Filt Rate > 60 mL/min (>60); Globulin 3.2 g/dL (1.7-4.1); Glucose 103 mg/dL (80-110); HEMOLYSIS < 15 (0-50); Lipase 428 U/L (23-300); Total Protein 7.2 g/dL (6.3-8.2)
[2022-02-10 21:28] LABS: Chloride 88 mmol/L (98-107); Potassium 3.5 mmol/L (3.4-5.1); Sodium 124 mmol/L (137-145)
[2022-02-10 21:29] LABS: Lactate (Lactic Acid) 1.1 mmol/L (0.7-2.1)
[2022-02-10 21:31] LABS: NT-proBNP (BNP-Adult 18+) 153 pg/mL (<125); Troponin I < 0.012 ng/mL (0.01-0.034)
[2022-02-10 21:42] LABS: Creatine Kinase 4210 U/L (30-135)
[2022-02-10 21:54] LABS: CKMB % Relative Index 0.1 % (1.5-5.0)
[2022-02-10] MEDS: MORPHINE 4 MG/ML INJ IV (22:52)
[2022-02-10] MEDS: SODIUM CHLORIDE 0.9% 1,000 ML 1000 ML IV (22:52)
[2022-02-10] MEDS: DEXAMETHASONE 10 MG/ML VIAL IV (22:52)
[2022-02-10 22:58] VITALS: BP 144/111; PULSE 80; RESP 18; O2SAT 99
== END 2022-02-11 03:00 | disposition home or self-care (01) ==
PROVIDERS: Emergency Provider Emergency Medicine; PCP Family Medicine
DX: E87.1 Hypo-osmolality and hyponatremia (principal); C79.31 Secondary malignant neoplasm of brain; R22.2 Localized swelling, mass and lump, trunk; R41.0 Disorientation, unspecified; R07.9 Chest pain, unspecified; R51.9 Headache, unspecified; Z79.01 Long term (current) use of anticoagulants; Z79.899 Other long term (current) drug therapy
CPT/HCPCS: 36415; 70450; 71275; 80053; 82550; 82553; 83605; 83690; 83880; 84484; 85025; 85610; 85730; 87040; 93971; 96361; 96374; 96375; 99284; J1100; J1642; J2270; Q9967

== ENCOUNTER 2022-02-24 11:01 | Emergency (ER) | payer OTHER, BC, SELFPAY ==
[2022-02-24] VITALS (15 sets, daily range): BP systolic 106–165; BP diastolic 73–102; PULSE 100–109; RESP 14–23; O2SAT 93–98
--- NOTE | 2022-02-24 11:14 | ED.GENADULT ---
HPI - General Adult General Chief complaint: Shortness of Breath/Dyspnea Stated complaint: RT side of face swollen/cant breathe Time Seen by Provider: 02/24/22 11:08 History of Present Illness HPI narrative: 61-year-old female daily smoker with history of known small-cell lung cancer with metastases receiving palliative care locally presents with her daughter and a chief complaint of increasing swelling in her right arm, right side of neck and face. She had been seen about 1 week ago for evaluation of right arm swelling and had a very thorough evaluation with advanced imaging noting a large right supraclavicular jayleen mass consistent with metastatic disease that is suspected to be exerting mass effect on adjacent vessels but no evidence of superior vena cava syndrome patient was also slightly hyponatremic but in the end discharged home and had follow-up with her primary care provider in the aftermath. She is a DNR and has had initial conversations about the potential of hospice in the past. She presents today as noted with progression of swelling of arm but also right side neck and face. She denies any difficulty swelling or altered mental status but generally feels unwell. She has no fever or chills. She denies nausea, vomiting or diarrhea. She denies any trauma or injury. Related Data Home Medications Medication Instructions Recorded Confirmed cholecalciferol (vitamin D3) 125 125 mcg PO DAILY 09/20/20 02/14/22 mcg (5,000 unit) capsule garlic 1,000 mg capsule 1,000 mg PO QPC 09/20/20 02/14/22 mecobalamin (vitamin B12) 1,000 1,000 mcg PO DAILY 09/20/20 02/14/22 mcg chewable tablet omega-3 fatty acids 1,000 mg 1,000 mg PO DAILY 09/20/20 02/14/22 capsule turmeric root extract 500 mg 500 mg PO DAILY 09/20/20 02/14/22 capsule flaxseed oil 10 ml miscellaneous BID 02/21/21 02/14/22 amlodipine 2.5 mg tablet 2.5 mg PO DAILY High BP 01/08/22 02/14/22 Previous Rx's Medication Instructions Recorded lisinopril 40 mg tablet 40 mg PO DAILY #90 tabs 09/20/20 lidocaine-prilocaine 2.5 %-2.5 % 1 applic topical PRN PRN pain #30 06/24/21 topical cream grams levothyroxine 75 mcg tablet 75 mcg PO DAILY Hypothyroidism #90 09/12/21 tabs oxycodone-acetaminophen 7.5 mg-325 1 tab PO Q6H PRN cancer related 09/19/21 mg tablet pain #120 tabs levetiracetam 1,000 mg tablet for 1,000 mg PO BID #180 tabs 12/24/21 oral suspension anastrozole 1 mg tablet 1 mg PO DAILY breast cancer #90 01/20/22 tabs apixaban 5 mg tablet (Eliquis) 5 mg PO BID small cell lung cancer 02/06/22 #60 tabs oxycodone-acetaminophen 7.5 mg-325 1 - 2 tab PO Q4H PRN pain #180 tabs 02/06/22 mg tablet dexamethasone 4 mg tablet 4 mg PO BID #20 tabs 02/11/22 olanzapine 10 mg disintegrating 10 mg PO BEDTIME #14 tabs 02/13/22 tablet Allergies Allergy/AdvReac Type Severity Reaction Status Date / Time No Known Drug Allergies Allergy Verified 02/24/22 11:17 Review of Systems Review of Systems Narrative: GENERAL: See HPI HEENT: See HPI RESPIRATORY: Denies dyspnea, cough, wheezing, hemoptysis, sputum. CARDIOVASCULAR: See HPI GASTROINTESTINAL: Denies nausea, vomiting, abdominal pain, diarrhea, constipation, melena. : Denies dysuria, frequency, incontinence, hematuria, urinary retention. MUSCULOSKELETAL: See HPI SKIN: Denies rash, skin lesions, or other NEUROLOGIC: Denies weakness, headache, numbness, change in speech, confusion, seizures, incoordination. PSYCHIATRIC: No concerning psychosocial issues. 12 point review of systems is negative except for those stated above Patient History Medical History Aneurysm of posterior inferior cerebellar artery Breast cancer, stage 2 HLD (hyperlipidemia) Hyperparathyroidism Hypertension Hypothyroidism Measles Nonintractable epilepsy with complex partial seizures Osteopenia Seizures Small cell carcinoma Surgical History History of bilateral mastectomy (04/04/16) Hx of lymph node biopsy (11/05/20) Status post PICC central line placement Family History Father Cancer Social History household members: children and none Smoking Status: Current every day smoker alcohol intake: former substance use type: former substance user Smoking Status: Current every day smoker alcohol intake frequency: holidays/special occasions only Substance Use Type: marijuana Exam Narrative Exam Narrative: GENERAL: [61] year old patient appears stated age. Well-developed patient, in mild distress. HEAD: Right-sided facial swelling, including upper lid EYES: Right upper and lower lid swelling Pupils equal round and reactive. Extraocular motions intact. No scleral icterus. No injection or drainage. ENT: Nose without bleeding, purulent drainage. Throat without erythema, tonsillar hypertrophy or exudate. Airway patent. NECK: Right-side neck swelling, tenderness in the supraclavicular notch on the right CARDIOVASCULAR: Regular rate and rhythm without murmurs, gallops, or rubs. RESPIRATORY: Clear to auscultation. Breath sounds equal bilaterally. No wheezes, rales, or rhonchi. GASTROINTESTINAL: Abdomen soft, non-tender, nondistended. EXTREMITIES: Right upper extremity circumferential swelling BACK: Nontender without deformity or crepitance. No flank tenderness. NEURO: AOx3. SKIN: No rash or erythema of visible areas Initial Vital Signs Initial Vital Signs: Vital Signs Pulse Rate 106 H 02/24/22 11:14 Blood Pressure 118/73 02/24/22 11:14 Pulse Oximetry 94 02/24/22 11:14 Oxygen Delivery Method 02/24/22 11:14 Course Orders Ordered: ED Orders 02/24/22 11:17 Chest [XR chest 1V] Stat US periph venous up extrem rt Stat 02/24/22 11:30 Complete Blood Count AUTO DIFF Stat Comprehensive Metabolic Panel Stat Lipase Stat Magnesium Stat NT-proBNP (BNP-Adult 18+) Stat Prothrombin Time INR Stat Troponin & CK Cardiac Panel Stat 02/24/22 11:59 CT chest w con Stat 02/24/22 14:05 Consult to SENIOR PROJECT ACCOUNTANT - Occupational Safety And Health Manager Stat 02/24/22 14:28 Consult to Hospice Referral Stat Consultations Consultation #1: Discussion with patient's oncologist, Dr. 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 He is quick to recommend that patient had already had conversations about hospice and these findings are very concerning and his strong and final recommendation is to pursue hospice Consultation #2: Upon completion conversation with Oncology, SENIOR PROJECT ACCOUNTANT consult placed. I did discuss with both the patient and daughter at the bedside and they understand and are very much in agreement with pursuing hospice care Vital Signs Vital signs: Vital Signs - 8 hr 02/24/22 11:14 02/24/22 11:14 02/24/22 11:30 Pulse Rate 106 H Respiratory Rate Blood Pressure 118/73 116/78 Pulse Oximetry 94 Oxygen Delivery Method Room Air 02/24/22 11:30 02/24/22 12:00 02/24/22 12:00 Pulse Rate 103 H 101 H Respiratory Rate Blood Pressure 117/78 Pulse Oximetry 94 93 Oxygen Delivery Method Room Air Room Air 02/24/22 12:30 02/24/22 12:31 02/24/22 12:31 Pulse Rate 109 H 107 H Respiratory Rate Blood Pressure 165/102 H Pulse Oximetry 94 96 Oxygen Delivery Method Room Air Room Air 02/24/22 13:00 02/24/22 13:00 02/24/22 13:30 Pulse Rate 102 H Respiratory Rate 17 Blood Pressure 143/91 H 131/90 Pulse Oximetry 94 Oxygen Delivery Method Room Air 02/24/22 13:30 02/24/22 14:00 02/24/22 14:00 Pulse Rate 102 H 103 H Respiratory Rate 19 23 Blood Pressure 112/82 Pulse Oximetry 93 94 Oxygen Delivery Method Room Air Room Air 02/24/22 14:30 02/24/22 14:30 02/24/22 15:00 Pulse Rate 100 H Respiratory Rate 14 Blood Pressure 106/74 117/74 Pulse Oximetry 93 Oxygen Delivery Method Room Air 02/24/22 15:00 Pulse Rate 103 H Respiratory Rate 16 Blood Pressure Pulse Oximetry 94 Oxygen Delivery Method Room Air Medical Decision Making Lab Data Result diagrams: 02/24/22 11:30 02/24/22 11:30 Labs: Lab Results 02/24/22 02/24/22 02/24/22 Range/Units 11:30 11:30 11:30 WBC 9.7 (4.5-11.0) X10^3/uL RBC 2.28 L (4.0-5.2) X10^6/uL Hgb 7.7 L (12.0-16.0) g/dL Hct 23.0 L (36-46) % MCV 100.8 H (80-100) fL MCH 34.0 (26-34) PG MCHC 33.8 (30-36) % RDW 21.3 H (11.6-14.8) % Plt Count 180 (150-400) X10^3/uL Neut % (Auto) 83.8 H (50-75) % Lymph % (Auto) 8.4 L (25-40) % Bond % (Auto) 6.7 (3-14) % Eos % (Auto) 0.6 L (2-4) % Baso % (Auto) 0.5 (0-2) % Neut # (Auto) 8100 H (0473-2692) /uL Lymph # (Auto) 800 L (4192-6911) /uL Bond # (Auto) 600 (0-900) /uL Eos # (Auto) 100 (0-450) /uL Baso # (Auto) 100 (0-100) /uL RBC Morphology See below Poikilocytosis 1+ H Anisocytosis 2+ H PT 14.4 H (10.1-12.7) SECONDS INR 1.3 (0.9-1.3) Sodium 133 L (137-145) mmol/L Potassium 3.4 (3.4-5.1) mmol/L Chloride 101 (98-107) mmol/L Carbon Dioxide 27 (22-32) mmol/L BUN 15 (7-17) mg/dL Creatinine 0.95 (0.52-1.04) mg/dL Estimated GFR > 60 (>60) mL/min BUN/Creatinine Ratio 15.8 (6-22) Glucose 79 L (80-110) mg/dL Calcium 8.5 (8.4-10.2) mg/dL Magnesium 1.8 (1.6-2.3) mg/dL Total Bilirubin 0.4 (0.2-1.3) mg/dL AST 45 H (14-36) IU/L ALT 34 (<35) IU/L Alkaline Phosphatase 48 (38-126) U/L Total Creatine Kinase 479 H (30-135) U/L CK-MB (CK-2) 4.50 H (<2.37) ng/mL CK-MB (CK-2) Rel Index 0.9 L (1.5-5.0) % Troponin I < 0.012 (0.01-0.034) ng/mL NT-Pro-B Natriuret Pep 118 (<125) pg/mL Total Protein 6.5 (6.3-8.2) g/dL Lipase 292 (23-300) U/L Urine Dip Bedside Urine Glucose Negative Bedside Urine Bilirubin - Negative Bedside Urine Ketone - Negative Urine Specific [place] 1.015 Bedside Urine Occult Blood - Negative Bedside Urine pH 6.0 Bedside Urine Protein - Negative Bedside Urine Urobilinogen - Negative Bedside Urine Nitrite - Negative Bedside Urine Leukocytes - Negative Esterase Point of care testing: Urine Dip Bedside Urine Glucose Negative Bedside Urine Bilirubin - Negative Bedside Urine Ketone - Negative Urine Specific [place] 1.015 Bedside Urine Occult Blood - Negative Bedside Urine pH 6.0 Bedside Urine Protein - Negative Bedside Urine Urobilinogen - Negative Bedside Urine Nitrite - Negative Bedside Urine Leukocytes - Negative Esterase Imaging Data CT scan - chest: Radiologist's Impression: Brando Elliott??61??F??1960 ? Allergy/Adv: No Known Drug Allergies Close Chest CT (Signed) Jodi Ann - 02/24/22 Peripheral Vascular Ultrasound (Signed) Jodi Ann - 02/24/22 Chest X-Ray (Signed) Jodi Ann - 02/24/22 Peripheral Vascular Ultrasound (Signed) Raymond Sanders - 02/10/[address] (Signed) Raymond Sanders - 02/10/22 Chest CTA (Signed) Raymond Sanders - 02/10/[address] (Signed) Varghese Rosenthal - 01/06/[address] (Signed) Varghese Rosenthal - 01/06/22 Chest/Abdomen/Pelvis CT (Signed) Tom Castaneda - 01/06/22 Chest/Abdomen/Pelvis CT (Signed) Vishnu Perla - 09/25/21 PET, Tumor Imaging Skull-Mid Thigh (Signed) Vishnu Perla - 09/18/[address] (Signed) Varghese Rosenthal - 08/23/21 PET, Tumor Imaging Skull-Mid Thigh (Signed) Mumtaz Perla - 05/15/21 Outside DI 05/08/21 Outside DI 05/08/21 Chest/Abdomen/Pelvis CT (Signed) Melinda Guerrero - 02/26/[address] (Signed) Varghese Rosenthal - 02/26/21 Chest X-Ray (Signed) Cortez Espinoza - 12/31/20 Telemetry Strips 12/31/20 Chest X-Ray (Signed) TravEdgar - 12/31/20 PICC Line Insertion (Signed) Toñito Del Castillo - 12/12/[address] (Signed) MerlosJaquan van - 11/28/[address] (Signed) Merlos,Jaquan - 11/28/20 Telemetry Strips 11/14/20 Chest X-Ray (Signed) Toñito Del Castillo - 11/14/20 Outside DI 11/08/20 Outside DI 10/31/20 Chest/Abdomen/Pelvis CT (Signed) Mumtaz Perla - 10/23/[address] (Signed) Mohinder Allan - 10/23/[address] (Signed) Varghese Rosenthal - 10/23/20 Chest X-Ray (Signed) Ginger Ellison - 10/23/20 Head/Neck Ultrasound (Signed) Robert Mcmanus - 09/27/20 Shoulder X-Ray (Signed) Cortez Espinoza - 09/20/20 Launch?[place] [address] CT Scan Report Signed Patient: Brando Elliott MR#: [id number] : 1960 Acct:[id number] Age/Sex: 61 / F Date of Service: 02/24/22 Loc: ED Accession Number: [id number] ?? Procedure: CT chest w con Ordering Provider: Oniel Franklin D.O. PROCEDURE:? CT CHEST W CON ? INDICATIONS:? known CA with chest mass, worse head, face swelling ? TECHNIQUE:? After the administration of intravenous contrast, 5 mm thick sections acquired from the pulmonary apices to the posterior costophrenic angles.? 1 mm axial lung, 5 mm thick coronal and sagittal reformats and 7 mm axial MIP were acquired.? For radiation dose reduction, the following was used:? automated exposure control, adjustment of mA and/or kV according to patient size.? ? COMPARISON:? [facility], , US PERIPH VENOUS UP EXTREM RT, 02/24/2022, 11:33.? [facility], CT, CT ANGIO CHEST PE PROTOCOL, 02/10/2022, 21:19.? [facility], CT, CT CHEST W CON, 11/28/2020, 13:41. ? FINDINGS:? Image quality:? Excellent.? ? Lungs and pleura:? There is mild centrilobular emphysema with an apical predominance.? No acute airspace opacities.? No pleural effusion or pneumothorax. ? Mediastinum:? Heart size is normal.? No pericardial effusion.? Large enhancing subcarinal soft tissue mass is redemonstrated and unchanged from the study dated February 10, 2022. 2 enhancing soft tissue mass lesions are present within the anterior mediastinum and appear to resultant extrinsic compression of the central left brachiocephalic vein and compression of the superior vena cava.? The extent of compression of the SVC may be slightly increased when compared with the prior CT from February 10, 2022; however direct comparison is somewhat limited given differences in scanning technique.? A large right thoracic inlet soft tissue mass is also present.? This displaces the right subclavian artery and likely displaces the right subclavian vein posteriorly (subclavian vein is not well visualized.? There is a right Port-A-Cath, the tip of which is at the cavoatrial junction.? The lower SVC appears patent.? The superior left brachiocephalic vein and subclavian vein appear patent.? Both subclavian arteries appear patent.? The origins of the great vessels appear patent and demonstrate conventional anatomy. ? Bones and chest wall:? No suspicious bony lesions.? No vertebral body compression fractures.? No axillary or supraclavicular adenopathy by size criteria.? Thyroid gland is unremarkable.? Bilateral breast implants are grossly intact. ? Abdomen:? Visualized upper abdominal solid organs appear normal.? Upper abdominal bowel loops are normal in caliber.? ? IMPRESSION:? ? 1. Multiple thoracic soft tissue mass lesions as described above.? 2 anterior mediastinal soft tissue mass lesions result in extrinsic compression of the central aspect of the left brachiocephalic vein and the superior aspect of the SVC.? Although no discrete thrombus is visualized, these findings have likely resulted in hydrostatic pressure within the upper SVC consistent with SVC syndrome. ? 2. No findings to suggest thrombus within the subclavian arteries or visualized portions of the great vessels.? ? Dictated by: Jodi Ann M.D. on 02/24/2022 at 12:32 ? ? Approved by: Jodi Ann M.D. on 02/24/2022 at 12:45 ? MDM Narrative Medical decision making narrative: CC: Right arm, neck and facial swelling with known end-stage metastatic cancer Complicating co-morbidities: Metastatic lung cancer with brain metastases Data collected from: Patient, daughter and oncologist Medical records reviewed: Including recent visits to our emergency department and Oncology Differential considered, but not limited to: Superior vena cava syndrome, DVT versus other Exam documented above, pertinent findings include: Noted swelling to right upper extremity, right side of neck and face. No evidence of shortness of breath, difficulty swallowing, confusion or altered mental status. Lab Test results independently reviewed as above. Pertinent findings: Nothing of significance Imaging studies independently reviewed: Mass effect with evidence of superior vena cava syndrome Consultations: Dr. Esquivel Oncology Discussion: Patient with advanced metastatic disease receiving palliative care wishes to advanced to hospice care. She had had conversations in the past with Oncology and today's diagnosis confirms her decision Diagnosis: Disposition: see below, along with detailed discharge instructions that have been reviewed with patient as well as indications for ED re-evaluation and additional outpatient follow up Discharge Plan Departure Patient Disposition: Home Clinical Impression: Malignant neoplasm metastatic to lymph nodes of multiple sites with unknown primary site, Acute superior vena cava obstruction Instructions: DI for Lung Cancer Activity Restrictions/Additional Instructions: *You have been diagnosed with [superior vena cava syndrome, end-stage metastatic lung cancer] *What to do: *Please continue to take your regular medications as directed. * as you had discussed with social Work, hospice expects to begin their involvement as soon as Thursday. *Return to Emergency Department prior to hospice involvement for any concerning symptoms, however after you are on hospice service please contact them for instructions Prescriptions: No Action levetiracetam 1,000 mg Tablet For Suspension 1,000 mg PO BID Qty: 180 3RF amlodipine 2.5 mg tablet 2.5 mg PO DAILY omega-3 fatty acids 1,000 mg capsule 1,000 mg PO DAILY mecobalamin (vitamin B12) 1,000 mcg tablet,chewable 1,000 mcg PO DAILY cholecalciferol (vitamin D3) 125 mcg (5,000 unit) capsule 125 mcg PO DAILY turmeric root extract 500 mg capsule 500 mg PO DAILY garlic 1,000 mg capsule 1,000 mg PO QPC lisinopril 40 mg tablet 40 mg PO DAILY Qty: 90 3RF flaxseed oil Oil 10 ml MISCELLANEOUS BID lidocaine-prilocaine 2.5-2.5 % Cream 1 applic topical PRN PRN (Reason: pain) Qty: 30 0RF Rx Instructions: Apply to the skin over the port at least 2 hrs before planned use of the port. Cover the cream with a small piece of plastic wrap and leave in place until the port is accessed. levothyroxine 75 mcg Tablet 75 mcg PO DAILY Qty: 90 0RF Rx Instructions: Take one 75mcg tablet daily. Take on an empty stomach 30-45 minutes prior to eating. oxycodone-acetaminophen 7.5-325 mg Tablet 1 tab PO Q6H PRN (Reason: cancer related pain) Qty: 120 0RF anastrozole 1 mg tablet 1 mg PO DAILY Qty: 90 3RF Eliquis 5 mg Tablet 5 mg PO BID Qty: 60 11RF oxycodone-acetaminophen 7.5-325 mg Tablet 1 - 2 tab PO Q4H PRN (Reason: pain) Qty: 180 0RF Rx Instructions: Take 1-2 tabs every 4-6 hours as needed for pain olanzapine 10 mg Tablet,Disintegrating 10 mg PO BEDTIME Qty: 14 3RF dexamethasone 4 mg tablet 4 mg PO BID Qty: 20 0RF Referrals: Sander Macdonald MD [Primary Care Provider] - Stand Alone Forms: Patient Portal/API
--- NOTE | 2022-02-24 11:17 | DI.US.S_ITS ---
PROCEDURE: US PERIPH VENOUS UP EXTREM RT INDICATIONS: pain swelling, hx CA TECHNIQUE: Real-time imaging, as well as color and pulse Doppler interrogation, was performed of the right upper extremity deep veins from the inferior neck to the antecubital fossa. COMPARISON: [facility], CT, CT ANGIO CHEST PE PROTOCOL, 02/10/2022, 21:19. [facility], US, US PERIP VENOUS UP EXTREM RT, 02/10/2022, 22:09. FINDINGS: The internal jugular vein, visualized portions of the subclavian vein, axillary, and brachial veins are free of intraluminal thrombus. Where physically possible, the veins are normally compressible. Color and pulse Doppler demonstrate normal intraluminal flow, with expected phasicity and pulsatility. Additional scanning of the cephalic and basilic veins of the superficial system demonstrate normal compressibility, without thrombus. A hypoechoic mass is redemonstrated within the subcutaneous tissue at the level of the right subclavian vein. IMPRESSION: 1. No deep vein thrombosis of the right upper extremity. 2. Large right soft tissue mass at the level of the right subclavian vein. Dictated by: Jodi Ann M.D. on 02/24/2022 at 12:11 Approved by: Jodi Ann M.D. on 02/24/2022 at 12:12
--- NOTE | 2022-02-24 11:17 | DI.RAD.S_ITS ---
PROCEDURE: XR CHEST 1V INDICATIONS: SOB TECHNIQUE: One view of the chest was acquired. COMPARISON: [facility], CR, XR CHEST 1V, 12/31/2020, 12:37. FINDINGS: Surgical changes and devices: There is a right Port-A-Cath, the tip of which is projected over the cavoatrial junction. Lungs and pleura: Lungs are clear. No pleural effusions or pneumothorax. Mediastinum: Mediastinal contours appear normal. Heart size is normal. Bones and chest wall: No suspicious bony lesions. Overlying soft tissues appear unremarkable. IMPRESSION: No acute cardiopulmonary findings. Dictated by: Jodi Ann M.D. on 02/24/2022 at 12:25 Approved by: Jodi Ann M.D. on 02/24/2022 at 12:26
[2022-02-24 11:41] LABS: Add Manual Diff / Slide Review NO; Basophils Absolute Auto 100 /uL (0-100); Basophils Percent Auto 0.5 % (0-2); Eosinophils Absolute Auto 100 /uL (0-450); Eosinophils Percent Auto 0.6 % (2-4); Hemoglobin 7.7 g/dL (12.0-16.0); Lymphocytes Absolute Auto 800 /uL (1100-4500); Lymphocytes Percent Auto 8.4 % (25-40); Mean Corpuscular HGB Conc 33.8 % (30-36); Mean Corpuscular Volume 100.8 fL (80-100); Monocytes Absolute Auto 600 /uL (0-900); Monocytes Percent Auto 6.7 % (3-14); Neutrophils Absolute Auto 8100 /uL (1500-7000); Neutrophils Percent Auto 83.8 % (50-75); Platelet Count 180 X10^3/uL (150-400); Red Blood Cell Count 2.28 X10^6/uL (4.0-5.2); Red Cell Distribution Width 21.3 % (11.6-14.8); White Blood Cell Count 9.7 X10^3/uL (4.5-11.0)
[2022-02-24 11:46] LABS: INR 1.3 (0.9-1.3); Prothrombin Time 14.4 SECONDS (10.1-12.7)
[2022-02-24 11:53] LABS: Alanine Aminotransferase 34 IU/L (<35); Alkaline Phosphatase 48 U/L (38-126); Aspartate Aminotransferase 45 IU/L (14-36); BUN Creatinine Ratio 15.8 (6-22); Bilirubin Total 0.4 mg/dL (0.2-1.3); Blood Urea Nitrogen 15 mg/dL (7-17); Calcium 8.5 mg/dL (8.4-10.2); Carbon Dioxide 27 mmol/L (22-32); Chloride 101 mmol/L (98-107); Creatine Kinase 479 U/L (30-135); Estimated Glomerular Filt Rate > 60 mL/min (>60); Glucose 79 mg/dL (80-110); HEMOLYSIS < 15 (0-50); Lipase 292 U/L (23-300); Magnesium 1.8 mg/dL (1.6-2.3); Potassium 3.4 mmol/L (3.4-5.1); Sodium 133 mmol/L (137-145); Total Protein 6.5 g/dL (6.3-8.2)
--- NOTE | 2022-02-24 11:59 | DI.CT.S_ITS ---
PROCEDURE: CT CHEST W CON INDICATIONS: known CA with chest mass, worse head, face swelling TECHNIQUE: After the administration of intravenous contrast, 5 mm thick sections acquired from the pulmonary apices to the posterior costophrenic angles. 1 mm axial lung, 5 mm thick coronal and sagittal reformats and 7 mm axial MIP were acquired. For radiation dose reduction, the following was used: automated exposure control, adjustment of mA and/or kV according to patient size. COMPARISON: [facility], US, US PERIPH VENOUS UP EXTREM RT, 02/24/2022, 11:33. [facility], CT, CT ANGIO CHEST PE PROTOCOL, 02/10/2022, 21:19. [facility], CT, CT CHEST W CON, 11/28/2020, 13:41. FINDINGS: Image quality: Excellent. Lungs and pleura: There is mild centrilobular emphysema with an apical predominance. No acute airspace opacities. No pleural effusion or pneumothorax. Mediastinum: Heart size is normal. No pericardial effusion. Large enhancing subcarinal soft tissue mass is redemonstrated and unchanged from the study dated February 10, 2022. 2 enhancing soft tissue mass lesions are present within the anterior mediastinum and appear to resultant extrinsic compression of the central left brachiocephalic vein and compression of the superior vena cava. The extent of compression of the SVC may be slightly increased when compared with the prior CT from February 10, 2022; however direct comparison is somewhat limited given differences in scanning technique. A large right thoracic inlet soft tissue mass is also present. This displaces the right subclavian artery and likely displaces the right subclavian vein posteriorly (subclavian vein is not well visualized. There is a right Port-A-Cath, the tip of which is at the cavoatrial junction. The lower SVC appears patent. The superior left brachiocephalic vein and subclavian vein appear patent. Both subclavian arteries appear patent. The origins of the great vessels appear patent and demonstrate conventional anatomy. Bones and chest wall: No suspicious bony lesions. No vertebral body compression fractures. No axillary or supraclavicular adenopathy by size criteria. Thyroid gland is unremarkable. Bilateral breast implants are grossly intact. Abdomen: Visualized upper abdominal solid organs appear normal. Upper abdominal bowel loops are normal in caliber. IMPRESSION: 1. Multiple thoracic soft tissue mass lesions as described above. 2 anterior mediastinal soft tissue mass lesions result in extrinsic compression of the central aspect of the left brachiocephalic vein and the superior aspect of the SVC. Although no discrete thrombus is visualized, these findings have likely resulted in hydrostatic pressure within the upper SVC consistent with SVC syndrome. 2. No findings to suggest thrombus within the subclavian arteries or visualized portions of the great vessels. Dictated by: Jodi Ann M.D. on 02/24/2022 at 12:32 Approved by: Jodi Ann M.D. on 02/24/2022 at 12:45
[2022-02-24 12:05] LABS: NT-proBNP (BNP-Adult 18+) 118 pg/mL (<125); Troponin I < 0.012 ng/mL (0.01-0.034)
[2022-02-24 12:08] LABS: CKMB % Relative Index 0.9 % (1.5-5.0)
[2022-02-24 12:25] LABS: Anisocytosis 2+
[2022-02-24 12:26] LABS: Poikilocytosis 1+
--- NOTE | 2022-02-24 17:40 | CM.SWNOTE ---
PHARMACY MANAGER Note PHARMACY MANAGER receives consult due to patient's request to start Hospice services. Patient is 61 y/o female who presents to ED due to concern for SOB. Patient has hx dx metastatic lung cancer with brain metastases. Patient's PCP is Dr. Macdonald, patient's Oncologist is Dr. Esquivel. Patient has [employer] insurance. ED provider informs PHARMACY MANAGER that patient and daughter and seeking Hospice and ED provider has consulted with oncology who indicates agreement. PHARMACY MANAGER calls Oncology SW who indicates understanding and recommends [facility] for patient and family due to preference and after experience working with family. Present with patient is patient's daughter. It is reported that patient resides with daughter and all other family members are out of state. Patient and family deny preference for Hospice. PHARMACY MANAGER calls [facility] who indicate that they can start services on Thursday or . PHARMACY MANAGER calls [facility] who indicates that they can start services as soon as Thursday. PHARMACY MANAGER pursues hospice referral with [facility]. PHARMACY MANAGER faxes orders and clinicals to [facility]. PHARMACY MANAGER provides daughter with [facility] brochure. Plan: patient to d/c to home with hospice of referral. MODESTO Kyle
[2022-02-28 15:41] LABS: Albumin 3.6 g/dL (3.5-5.0); Albumin Globulin Ratio 1.2 (1.0-2.8); Globulin 2.9 g/dL (1.7-4.1)
== END 2022-02-24 17:36 | disposition home or self-care (01) ==
PROVIDERS: Emergency Provider Emergency Medicine; PCP Family Medicine
DX: C77.8 Secondary and unspecified malignant neoplasm of lymph nodes of multiple regions (principal); I87.1 Compression of vein; C34.90 Malignant neoplasm of unspecified part of unspecified bronchus or lung; R06.02 Shortness of breath; Z79.01 Long term (current) use of anticoagulants
CPT/HCPCS: 36415; 71045; 71260; 80053; 81003; 82550; 82553; 83690; 83735; 83880; 84484; 85025; 85610; 93971; 99284; Q9967